=== PATIENT | male | born 1950 | race Caucasian/White ===

== ENCOUNTER 2018-08-31 18:48 | Inpatient (IN) | payer OTHER, MEDICARE, BC ==
[2018-08-31] MEDS ORDERED: Sodium Chloride 0.9% 10 ML Syringe FLUSH PRN (19:13)
[2018-08-31] MEDS ORDERED: Sodium Chloride 0.9% 1,000 ML IV ONE (19:13)
[2018-08-31] MEDS ORDERED: Sodium Chloride 0.9% 2.5 ML Syringe FLUSH PRN (19:13)
[2018-08-31] MEDS ORDERED: Pantoprazole 40 MG Vial IVPUSH ONE (19:13)
--- NOTE | 2018-08-31 19:19 | EDM.PDOC ---
ED HPI GENERAL MEDICAL PROBLEM - General Chief Complaint: Cardiovascular Problem Stated Complaint: PT FAINTED Time Seen by Provider: 08/31/18 19:04 - History of Present Illness INITIAL COMMENTS - FREE TEXT/NARRATIVE: HISTORY AND PHYSICAL: History of present illness: The patient is a 67-year-old male with a history of coronary artery disease with stents and presents with no chest pain but with having 2 syncopal events today and black tarry stools. According to the patient he has never had any GI history such as peptic ulcer disease and he doesn't have heartburn or acid reflux. He said he had a normal day yesterday and today all day he didn't have much of an appetite so he didn't eat very much. He was sitting on the toilet having a black stool which he describes as a "black mass" and he had a syncopal event falling on the floor. A similar event happened a second time and he did strike the left forehead area. The sigmoid that was very brief in duration and was quickly there. Throughout these events he did not have any chest pain or shortness of breath no nausea no abdominal pain no vomiting and currently in the ED he denies any complaints of atraumatic pain such as extremity pain head neck or back pain chest wall pain or facial pain. The patient is on Plavix due to his cardiac history. Currently in the ED the patient does not feel lightheaded or dizzy and has no systemic complaints. He has had no recent fever chills or upper respiratory infections. He has had a screening colonoscopy but has never had an endoscopy. Review of systems: As per history of present illness and below otherwise all systems reviewed and negative. Past medical history: As per history of present illness and as reviewed below otherwise noncontributory. Surgical history: As per history of present illness and as reviewed below otherwise noncontributory. Social history: No reported history of drug or alcohol abuse. Family history: As per history of present illness and as reviewed below otherwise noncontributory. Physical exam: General: Well-developed well-nourished man who is nontoxic and vital signs are noted by me. Patient has an overall pale appearance HEENT: Atraumatic, normocephalic, pupils reactive, there is conjunctival pallor but no scleral icterus, mucous membranes moist, throat clear, neck supple, nontender, trachea midline. There are no midline step-offs in his defects of the cervical spine and at the left eyebrow there is a small superficial abrasion without bony tenderness defects or deformities. There is no scalp tenderness defects deformities or tenderness and no facial bone defects deformities. Lungs: Clear to auscultation, breath sounds equal bilaterally, chest nontender. Heart: S1S2, regular rate and rhythm no overt sinus Abdomen: Soft, nondistended, nontender. Bowel sounds are slightly hypoactive and there is some tympany on percussion of the abdomen. There is absolutely no tenderness to palpation rebound or guarding. Negative for masses or hepatosplenomegaly. Negative for costovertebral tenderness. Pelvis: Stable nontender. Genitourinary: Deferred. Rectal: There are no masses or lesions and rectal tone is normal. There is black watery stool in the vault which is Hemoccult positive Extremities: Atraumatic, negative for cords or calf pain. Neurovascular unremarkable. There is full range of motion IS without tenderness defects or deformities Neuro: Awake, alert, oriented. Cranial nerves II through XII unremarkable. Cerebellum unremarkable. Motor and sensory unremarkable throughout. Exam nonfocal. Back: There are no midline step-offs tenderness defects of the thoracic or lumbar spine no posterior rib or posterior pelvis tenderness and no visible evidence of any soft tissue injuries Diagnostics: EKG CBC CMP amylase lipase INR troponin chest x-ray CT scan of the head type and screen Therapeutics: IV O2 monitor IV fluids Protonix bolus and Protonix drip 2024: Case discussed with Dr. Pittman will do a formal consult on the patient and agrees the patient can stay here and his hemoglobin observed and transfusion as needed. He will discuss tomorrow with the patient possible endoscopy 2039: Case was discussed with Dr. May who accepts the patient for admission as an inpatient on telemetry I discussed the testing results with the patient and family at bedside and they are aware of the need for admission. Impression: Upper GI bleed with syncopal event Definitive disposition and diagnosis as appropriate pending reevaluation and review of above. - Related Data Allergies Allergy/AdvReac Type Severity Reaction Status Date / Time No Known Allergies Allergy Verified 08/31/18 18:59 Home Meds: Home Meds . [Unable to Verify Home Med List] 07/12/18 [History] Past Medical History Cardiovascular History: Reports: Hypertension, [place], Stents Genitourinary History: Reports: BPH Musculoskeletal History: Reports: Arthritis, Back Pain, Chronic Psychiatric History: Reports: PTSD Endocrine/Metabolic History: Reports: Diabetes, Type II, Hypothyroidism - Infectious Disease History Infectious Disease History: Reports: Chicken Pox, Measles, Mumps - Past Surgical History GI Surgical History: Reports: Colonoscopy Musculoskeletal Surgical History: Reports: Arthroscopic Knee, Other (See Below) Other Musculoskeletal Surgeries/Procedures:: back surgery Social & Family History - Family History Family Medical History: Noncontributory - Tobacco Use Smoking Status *Q: Current Every Day Smoker Years of Tobacco use: 50 Packs/Tins Daily: 1 - Recreational Drug Use Recreational Drug Use: Yes ED ROS GENERAL - Review of Systems Review Of Systems: ROS reveals no pertinent complaints other than HPI. ED EXAM, GENERAL - Physical Exam Exam: See Below (see dictation) Course - Vital Signs Last Recorded V/S: Last Vital Signs Temp 35.3 C 08/31/18 18:57 Pulse 93 08/31/18 18:57 Resp 18 08/31/18 18:57 BP 103/58 L 08/31/18 18:57 Pulse Ox 97 08/31/18 18:57 - Orders/Labs/Meds Orders: Active Orders 24 hr Category Date Time Status Patient Status [ADT] Stat ADT 08/31/18 20:54 Ordered Blood Glucose Check, Bedside [RC] ONETIME Care 08/31/18 19:12 Active Cardiac Monitoring [RC] . DIRECTED Care 08/31/18 19:11 Active EKG Documentation Completion [RC] STAT Care 08/31/18 19:11 Active Notify Provider Consults [RC] ASDIRECTED Care 08/31/18 20:38 Active Oxygen Therapy, ED [RC] ASDIRECTED Care 08/31/18 19:11 Active Pulse Oximetry [RC] ASDIRECTED Care 08/31/18 19:11 Active Consult to Physician [CONS] Stat Cons 08/31/18 20:37 Active Chest 1V Frontal [CR] Stat Exams 08/31/18 19:13 Ordered Head wo Cont [CT] Stat Exams 08/31/18 19:13 Ordered TYPE AND SCREEN [BBK] Stat Lab 08/31/18 19:42 Received Pantoprazole [ProTONIX IV] 80 mg Med 08/31/18 19:15 Active Sodium Chloride 0.9% [Normal Saline] 100 ml IV .Continuous Sodium Chloride 0.9% [Saline Flush] Med 08/31/18 19:13 Active 10 ml FLUSH ASDIRECTED PRN Sodium Chloride 0.9% [Saline Flush] Med 08/31/18 19:13 Active 2.5 ml FLUSH ASDIRECTED PRN Saline Lock Insert [OM.PC] Stat Oth 08/31/18 19:11 Ordered Medication Orders Pantoprazole Sodium 80 mg/ (Sodium Chloride) 100 mls @ 10 mls/hr IV .Continuous MACK Last Admin: 08/31/18 20:00 Dose: 10 mls/hr Sodium Chloride (Saline Flush) 10 ml FLUSH ASDIRECTED PRN PRN Reason: Keep Vein Open Last Admin: 08/31/18 19:26 Dose: 10 ml Sodium Chloride (Saline Flush) 2.5 ml FLUSH ASDIRECTED PRN PRN Reason: Keep Vein Open Last Admin: 08/31/18 19:26 Dose: 2.5 ml Labs: Laboratory Tests 08/31/18 08/31/18 08/31/18 Range/Units 19:03 19:03 19:03 WBC 12.96 H (4.0-11.0) K/uL RBC 3.34 L (4.50-5.90) M/uL Hgb 9.1 L (13.0-17.0) g/dL Hct 29.2 L (38.0-50.0) % MCV 87.4 (80.0-98.0) fL MCH 27.2 (27.0-32.0) pg MCHC 31.2 (31.0-37.0) g/dL RDW Std Deviation 46.2 (28.0-62.0) fl RDW Coeff of [place] 14 (11.0-15.0) % Plt Count 328 (150-400) K/uL MPV 9.60 (7.40-12.00) fL Add Manual Diff YES Neutrophils % (Manual) 70 (48.0-80.0) % Lymphocytes % (Manual) 20 (16.0-40.0) % Monocytes % (Manual) 10 (0.0-15.0) % Nucleated RBC % 0.0 /100WBC Absolute Seg Neuts 9.1 H (1.4-5.7) Lymphocytes # (Manual) 2.6 H (0.6-2.4) Monocytes # (Manual) 1.3 H (0.0-0.8) Nucleated RBCs # 0 K/uL INR 1.04 Sodium 138 (136-148) mmol/L Potassium 4.7 (3.5-5.1) mmol/L Chloride 104 (98-107) mmol/L Carbon Dioxide 23.3 (21.0-32.0) mmol/L BUN 42 H (7.0-18.0) mg/dL Creatinine 1.3 (0.8-1.3) mg/dL Est Cr Clr Drug Dosing 55.90 mL/min Estimated GFR (MDRD) 55.2 ml/min Glucose 160 H (74-106) mg/dL Calcium 9.3 (8.5-10.1) mg/dL Total Bilirubin 0.3 (0.2-1.0) mg/dL AST 8 L (15-37) IU/L ALT 17 (14-63) IU/L Alkaline Phosphatase 56 (46-116) U/L Troponin I < 0.050 (0.000-0.056) ng/mL Total Protein 7.1 (6.4-8.2) g/dL Albumin 3.0 L (3.4-5.0) g/dL Globulin 4.1 H (2.6-4.0) g/dL Albumin/Globulin Ratio 0.7 L (0.9-1.6) Amylase 40 (25-115) U/L Lipase 149 (73-393) U/L Meds: Medications Generic Name Dose Route Start Last Admin Trade Name Freq PRN Reason Stop Dose Admin Pantoprazole Sodium 80 mg/ 100 mls @ 10 mls/hr 08/31/18 19:15 08/31/18 20:00 Sodium Chloride IV 10 mls/hr .Continuous MACK Administration Sodium Chloride 10 ml 08/31/18 19:13 08/31/18 19:26 Saline Flush FLUSH 10 ml ASDIRECTED PRN Administration Keep Vein Open Sodium Chloride 2.5 ml 08/31/18 19:13 08/31/18 19:26 Saline Flush FLUSH 2.5 ml ASDIRECTED PRN Administration Keep Vein Open Discontinued Medications Generic Name Dose Route Start Last Admin Trade Name Freq PRN Reason Stop Dose Admin Sodium Chloride 1,000 mls @ 999 mls/hr 08/31/18 19:13 08/31/18 19:26 Normal Saline IV 08/31/18 20:13 999 mls/hr STAT ONE Administration Pantoprazole Sodium 80 mg 08/31/18 19:13 08/31/18 19:26 Protonix Iv IVPUSH 08/31/18 19:14 80 mg .BOLUS ONE Administration Pantoprazole Sodium Confirm 08/31/18 19:35 08/31/18 20:00 Protonix Iv Administered 08/31/18 19:36 Not Given Dose 80 mg .ROUTE .STK-MED ONE Departure - Departure Time of Disposition: 20:56 Disposition: Admitted As Inpatient 67 Condition: Good Clinical Impression: Upper GI bleed Syncopal episodes Qualifiers: Syncope type: unspecified Qualified Code(s): R55 - Syncope and collapse Referrals: PCP,None [Primary Care Provider] - Forms: ED Department Discharge - My Orders Last 24 Hours: My Active Orders 08/31/18 19:11 Cardiac Monitoring [RC] . DIRECTED EKG Documentation Completion [RC] STAT Oxygen Therapy, ED [RC] ASDIRECTED Pulse Oximetry [RC] ASDIRECTED Saline Lock Insert [OM.PC] Stat 08/31/18 19:12 Blood Glucose Check, Bedside [RC] ONETIME 08/31/18 19:13 Chest 1V Frontal [CR] Stat Head wo Cont [CT] Stat Sodium Chloride 0.9% [Saline Flush] 10 ml FLUSH ASDIRECTED PRN Sodium Chloride 0.9% [Saline Flush] 2.5 ml FLUSH ASDIRECTED PRN 08/31/18 19:15 Pantoprazole [ProTONIX IV] 80 mg Sodium Chloride 0.9% [Normal Saline] 100 ml IV .Continuous 08/31/18 19:42 TYPE AND SCREEN [BBK] Stat 08/31/18 20:37 Consult to Physician [CONS] Stat 08/31/18 20:38 Notify Provider Consults [RC] ASDIRECTED 08/31/18 20:54 Patient Status [ADT] Stat - Assessment/Plan Last 24 Hours: My Active Orders 08/31/18 19:11 Cardiac Monitoring [RC] . DIRECTED EKG Documentation Completion [RC] STAT Oxygen Therapy, ED [RC] ASDIRECTED Pulse Oximetry [RC] ASDIRECTED Saline Lock Insert [OM.PC] Stat 08/31/18 19:12 Blood Glucose Check, Bedside [RC] ONETIME 08/31/18 19:13 Chest 1V Frontal [CR] Stat Head wo Cont [CT] Stat Sodium Chloride 0.9% [Saline Flush] 10 ml FLUSH ASDIRECTED PRN Sodium Chloride 0.9% [Saline Flush] 2.5 ml FLUSH ASDIRECTED PRN 08/31/18 19:15 Pantoprazole [ProTONIX IV] 80 mg Sodium Chloride 0.9% [Normal Saline] 100 ml IV .Continuous 08/31/18 19:42 TYPE AND SCREEN [BBK] Stat 08/31/18 20:37 Consult to Physician [CONS] Stat 08/31/18 20:38 Notify Provider Consults [RC] ASDIRECTED 08/31/18 20:54 Patient Status [ADT] Stat
[2018-08-31 19:33] LABS: CHLORIDE,CL 104 mmol/L (98-107); SODIUM,NA 138 mmol/L (136-148)
[2018-08-31] MEDS ORDERED: Pantoprazole 40 MG Vial ONE (19:35)
[2018-08-31] MEDS: Pantoprazole 80 MG in Sodium Chloride 0.9% 100 ML IV SCH (20:00)
[2018-08-31] MEDS ORDERED: Sodium Chloride 0.9% 1,000 ML IV SCH (21:45)
[2018-08-31] MEDS ORDERED: Ondansetron 4 MG/2 ML SDV IVPUSH PRN (22:18)
--- NOTE | 2018-08-31 22:26 | PCM.HP ---
H&P History of Present Illness - General Date of Service: 08/31/18 Admit Problem/Dx: Admission Diagnosis/Problem Admission Diagnosis/Problem Gastrointestinal hemorrhage - History of Present Illness Initial Comments - Free Text/Narative: 67 yo male with pmh of CHF, CAD with last stent place in April who presented with two syncopal events. He passed out while passing dark tarry stool. Patient denies any shortness of breath, chest pain, or abdominal pain. He denies any nausea or vomiting. He denies any abnormal bruising. He takes plavix and aspirin. - Related Data Allergies/Adverse Reactions: Allergies Allergy/AdvReac Type Severity Reaction Status Date / Time No Known Allergies Allergy Verified 08/31/18 23:20 Home Medications: Home Meds Acetaminophen/Diphenhydramine [Acetaminophen Pm Caplet] 3 each PO BEDTIME [History] Aspirin [Adult Low Dose Aspirin EC] 81 mg PO DAILY 09/01/18 [History] Carvedilol 12.5 mg PO BIDMEALS 09/01/18 [History] Clopidogrel Bisulfate [Clopidogrel] 75 mg PO DAILY 09/01/18 [History] Ergocalciferol (Vitamin D2) [Vitamin D2] 2,000 unit PO DAILY 09/01/18 [History] Finasteride 5 mg PO DAILY 09/01/18 [History] Fluticasone Propionate [Flonase] 1 spray NASBOTH DAILY PRN 09/01/18 [History] Furosemide 80 mg PO DAILY 09/01/18 [History] Levothyroxine Sodium [Levo-T] 112 mcg PO DAILY 09/01/18 [History] Loratadine 10 mg PO DAILY 09/01/18 [History] Morphine Sulfate 15 mg PO TID 09/01/18 [History] Nitroglycerin [Nitrostat] 0.4 mg SL ASDIRECTED PRN 09/01/18 [History] Omeprazole 20 mg PO DAILY 09/01/18 [History] Spironolactone [Aldactone] 12.5 mg PO DAILY 09/01/18 [History] Sucralfate 1 gm PO BID 09/01/18 [History] Tamsulosin HCl 0.4 mg PO BEDTIME 09/01/18 [History] Zolpidem Tartrate 10 mg PO BEDTIME 09/01/18 [History] atorvaSTATin Calcium [Atorvastatin Calcium] 40 mg PO BEDTIME 09/01/18 [History] metFORMIN HCl [Metformin HCl] 500 mg PO BIDMEALS 09/01/18 [History] Past Medical History Cardiovascular History: Reports: Hypertension, [place], Stents Genitourinary History: Reports: BPH Musculoskeletal History: Reports: Arthritis, Back Pain, Chronic Psychiatric History: Reports: PTSD Endocrine/Metabolic History: Reports: Diabetes, Type II, Hypothyroidism - Infectious Disease History Infectious Disease History: Reports: Chicken Pox, Measles, Mumps - Past Surgical History GI Surgical History: Reports: Colonoscopy Musculoskeletal Surgical History: Reports: Arthroscopic Knee, Other (See Below) Other Musculoskeletal Surgeries/Procedures:: back surgery Social & Family History - Family History Family Medical History: Noncontributory - Tobacco Use Smoking Status *Q: Current Every Day Smoker Years of Tobacco use: 50 Packs/Tins Daily: 1 - Recreational Drug Use Recreational Drug Use: Yes H&P Review of Systems - Review of Systems: Review Of Systems: ROS reveals no pertinent complaints other than HPI. Exam - Exam Exam: See Below - Vital Signs Vital Signs: Last Vital Signs Temp 35.3 C 08/31/18 18:57 Pulse 73 08/31/18 20:59 Resp 18 08/31/18 18:57 BP 112/63 08/31/18 20:59 Pulse Ox 96 08/31/18 20:59 Weight: 86.183 kg - Exam General: Alert, Oriented HEENT: Mucosa Moist & [place] Lungs: Clear to Auscultation, Normal Respiratory Effort Cardiovascular: Regular Rate, Regular Rhythm GI/Abdominal Exam: Soft, Non-Tender Extremities: Non-Tender, No Pedal Edema Skin: Warm, Dry, Intact - Patient Data Lab Results Last 24 hrs: Laboratory Results - last 24 hr 08/31/18 08/31/18 08/31/18 Range/Units 19:03 19:03 19:03 WBC 12.96 H (4.0-11.0) K/uL RBC 3.34 L (4.50-5.90) M/uL Hgb 9.1 L (13.0-17.0) g/dL Hct 29.2 L (38.0-50.0) % MCV 87.4 (80.0-98.0) fL MCH 27.2 (27.0-32.0) pg MCHC 31.2 (31.0-37.0) g/dL RDW Std Deviation 46.2 (28.0-62.0) fl RDW Coeff of [place] 14 (11.0-15.0) % Plt Count 328 (150-400) K/uL MPV 9.60 (7.40-12.00) fL Add Manual Diff YES Neutrophils % (Manual) 70 (48.0-80.0) % Lymphocytes % (Manual) 20 (16.0-40.0) % Monocytes % (Manual) 10 (0.0-15.0) % Nucleated RBC % 0.0 /100WBC Absolute Seg Neuts 9.1 H (1.4-5.7) Lymphocytes # (Manual) 2.6 H (0.6-2.4) Monocytes # (Manual) 1.3 H (0.0-0.8) Nucleated RBCs # 0 K/uL INR 1.04 Sodium 138 (136-148) mmol/L Potassium 4.7 (3.5-5.1) mmol/L Chloride 104 (98-107) mmol/L Carbon Dioxide 23.3 (21.0-32.0) mmol/L BUN 42 H (7.0-18.0) mg/dL Creatinine 1.3 (0.8-1.3) mg/dL Est Cr Clr Drug Dosing 55.90 mL/min Estimated GFR (MDRD) 55.2 ml/min Glucose 160 H (74-106) mg/dL Calcium 9.3 (8.5-10.1) mg/dL Total Bilirubin 0.3 (0.2-1.0) mg/dL AST 8 L (15-37) IU/L ALT 17 (14-63) IU/L Alkaline Phosphatase 56 (46-116) U/L Troponin I < 0.050 (0.000-0.056) ng/mL Total Protein 7.1 (6.4-8.2) g/dL Albumin 3.0 L (3.4-5.0) g/dL Globulin 4.1 H (2.6-4.0) g/dL Albumin/Globulin Ratio 0.7 L (0.9-1.6) Amylase 40 (25-115) U/L Lipase 149 (73-393) U/L Blood Type Antibody Screen 08/31/18 Range/Units 19:42 WBC (4.0-11.0) K/uL RBC (4.50-5.90) M/uL Hgb (13.0-17.0) g/dL Hct (38.0-50.0) % MCV (80.0-98.0) fL MCH (27.0-32.0) pg MCHC (31.0-37.0) g/dL RDW Std Deviation (28.0-62.0) fl RDW Coeff of [place] (11.0-15.0) % Plt Count (150-400) K/uL MPV (7.40-12.00) fL Add Manual Diff Neutrophils % (Manual) (48.0-80.0) % Lymphocytes % (Manual) (16.0-40.0) % Monocytes % (Manual) (0.0-15.0) % Nucleated RBC % /100WBC Absolute Seg Neuts (1.4-5.7) Lymphocytes # (Manual) (0.6-2.4) Monocytes # (Manual) (0.0-0.8) Nucleated RBCs # K/uL INR Sodium (136-148) mmol/L Potassium (3.5-5.1) mmol/L Chloride (98-107) mmol/L Carbon Dioxide (21.0-32.0) mmol/L BUN (7.0-18.0) mg/dL Creatinine (0.8-1.3) mg/dL Est Cr Clr Drug Dosing mL/min Estimated GFR (MDRD) ml/min Glucose (74-106) mg/dL Calcium (8.5-10.1) mg/dL Total Bilirubin (0.2-1.0) mg/dL AST (15-37) IU/L ALT (14-63) IU/L Alkaline Phosphatase (46-116) U/L Troponin I (0.000-0.056) ng/mL Total Protein (6.4-8.2) g/dL Albumin (3.4-5.0) g/dL Globulin (2.6-4.0) g/dL Albumin/Globulin Ratio (0.9-1.6) Amylase (25-115) U/L Lipase (73-393) U/L Blood Type A POSITIVE Antibody Screen NEGATIVE Result Diagrams: 09/01/18 08:25 08/31/18 19:03 Problem List Initiated/Reviewed/Updated: Yes Orders Last 24hrs: Active Orders 24 hr Category Date Time Status Patient Status [ADT] Stat ADT 08/31/18 20:54 Active Blood Glucose Check, Bedside [RC] ONETIME Care 08/31/18 19:12 Active Cardiac Monitoring [RC] . DIRECTED Care 08/31/18 19:11 Active EKG Documentation Completion [RC] STAT Care 08/31/18 19:11 Active Notify Provider Consults [RC] ASDIRECTED Care 08/31/18 20:38 Active Oxygen Therapy [RC] PRN Care 08/31/18 22:18 Ordered Oxygen Therapy, ED [RC] ASDIRECTED Care 08/31/18 19:11 Active Pulse Oximetry [RC] ASDIRECTED Care 08/31/18 19:11 Active VTE/DVT Education [RC] PER UNIT ROUTINE Care 08/31/18 22:18 Ordered Vital Signs [RC] Q4H Care 08/31/18 22:18 Ordered Consult to Physician [CONS] Stat Cons 08/31/18 20:37 Active Nothing per Oral Now Diet [DIET] Diet 08/31/18 Breakfast Ordered Chest 1V Frontal [CR] Stat Exams 08/31/18 19:13 Ordered Head wo Cont [CT] Stat Exams 08/31/18 19:13 Ordered BASIC METABOLIC PANEL,BMP [CHEM] AM Lab 09/01/18 05:11 Ordered CBC WITH AUTO DIFF [HEME] Q6H Lab 08/31/18 23:00 Ordered CBC WITH AUTO DIFF [HEME] Q6H Lab 09/01/18 05:00 Ordered Nicotine [Habitrol] Med 09/01/18 09:00 Ordered 21 mg TRDERM DAILY Ondansetron [Zofran] Med 08/31/18 22:18 Ordered 4 mg IVPUSH Q4H PRN Pantoprazole [ProTONIX IV] 80 mg Med 08/31/18 19:15 Active Sodium Chloride 0.9% [Normal Saline] 100 ml IV .Continuous Sodium Chloride 0.9% [Normal Saline] 1,000 ml Med 08/31/18 21:45 Active IV ASDIRECTED Sodium Chloride 0.9% [Saline Flush] Med 08/31/18 19:13 Active 10 ml FLUSH ASDIRECTED PRN Sodium Chloride 0.9% [Saline Flush] Med 08/31/18 19:13 Active 2.5 ml FLUSH ASDIRECTED PRN Saline Lock Insert [OM.PC] Stat Oth 08/31/18 19:11 Ordered Sequential Compression Device [OM.PC] Per Unit Routine Oth 08/31/18 22:19 Ordered Resuscitation Status Routine Resus Stat 08/31/18 22:18 Ordered Medication Orders Pantoprazole Sodium 80 mg/ (Sodium Chloride) 100 mls @ 10 mls/hr IV .Continuous MACK Last Admin: 08/31/18 20:00 Dose: 10 mls/hr Sodium Chloride (Normal Saline) 1,000 mls @ 125 mls/hr IV ASDIRECTED MACK Sodium Chloride (Saline Flush) 10 ml FLUSH ASDIRECTED PRN PRN Reason: Keep Vein Open Last Admin: 08/31/18 19:26 Dose: 10 ml Sodium Chloride (Saline Flush) 2.5 ml FLUSH ASDIRECTED PRN PRN Reason: Keep Vein Open Last Admin: 08/31/18 19:26 Dose: 2.5 ml Assessment/Plan Comment:: 67 yo male with pmh of CAD who is being admitted for GI bleed. We will treat with protonix drip, and trend Hgb. Due to concern of active GI bleed will hold plavix and aspirin. Dr. Pittman was consulted in the ED.
[2018-09-01] MEDS: Pantoprazole 80 MG in Sodium Chloride 0.9% 100 ML IV SCH ×2 (07:05→17:29)
--- NOTE | 2018-09-01 08:49 | PCM.PN ---
- General Info Date of Service: 09/01/18 - Review of Systems Systems Review Comment:: no abdominal pain, no bloody bowel movement. - Patient Data Vitals - Most Recent: Last Vital Signs Temp 36.7 C 09/01/18 08:20 Pulse 89 09/01/18 08:20 Resp 16 09/01/18 08:20 BP 117/59 L 09/01/18 08:20 Pulse Ox 99 09/01/18 08:20 Weight - Most Recent: 86.183 kg I&O - Last 24 Hours: Intake & Output 08/31/18 09/01/18 09/01/18 22:59 06:59 14:59 Intake Total 766 350 Balance 766 350 Lab Results Last 24 Hours: Laboratory Results - last 24 hr 08/31/18 08/31/18 08/31/18 Range/Units 19:03 19:03 19:03 WBC 12.96 H (4.0-11.0) K/uL RBC 3.34 L (4.50-5.90) M/uL Hgb 9.1 L (13.0-17.0) g/dL Hct 29.2 L (38.0-50.0) % MCV 87.4 (80.0-98.0) fL MCH 27.2 (27.0-32.0) pg MCHC 31.2 (31.0-37.0) g/dL RDW Std Deviation 46.2 (28.0-62.0) fl RDW Coeff of [place] 14 (11.0-15.0) % Plt Count 328 (150-400) K/uL MPV 9.60 (7.40-12.00) fL Add Manual Diff YES Neutrophils % (Manual) 70 (48.0-80.0) % Lymphocytes % (Manual) 20 (16.0-40.0) % Monocytes % (Manual) 10 (0.0-15.0) % Nucleated RBC % 0.0 /100WBC Absolute Seg Neuts 9.1 H (1.4-5.7) Lymphocytes # (Manual) 2.6 H (0.6-2.4) Monocytes # (Manual) 1.3 H (0.0-0.8) Nucleated RBCs # 0 K/uL INR 1.04 Sodium 138 (136-148) mmol/L Potassium 4.7 (3.5-5.1) mmol/L Chloride 104 (98-107) mmol/L Carbon Dioxide 23.3 (21.0-32.0) mmol/L BUN 42 H (7.0-18.0) mg/dL Creatinine 1.3 (0.8-1.3) mg/dL Est Cr Clr Drug Dosing 55.90 mL/min Estimated GFR (MDRD) 55.2 ml/min Glucose 160 H (74-106) mg/dL POC Glucose (60-110) mg/dL Calcium 9.3 (8.5-10.1) mg/dL Total Bilirubin 0.3 (0.2-1.0) mg/dL AST 8 L (15-37) IU/L ALT 17 (14-63) IU/L Alkaline Phosphatase 56 (46-116) U/L Troponin I < 0.050 (0.000-0.056) ng/mL Total Protein 7.1 (6.4-8.2) g/dL Albumin 3.0 L (3.4-5.0) g/dL Globulin 4.1 H (2.6-4.0) g/dL Albumin/Globulin Ratio 0.7 L (0.9-1.6) Amylase 40 (25-115) U/L Lipase 149 (73-393) U/L Blood Type Antibody Screen Crossmatch 08/31/18 08/31/18 08/31/18 Range/Units 19:18 19:42 23:11 WBC 7.96 (4.0-11.0) K/uL RBC 3.03 L (4.50-5.90) M/uL Hgb 8.2 L (13.0-17.0) g/dL Hct 26.3 L (38.0-50.0) % MCV 86.8 (80.0-98.0) fL MCH 27.1 (27.0-32.0) pg MCHC 31.2 (31.0-37.0) g/dL RDW Std Deviation 45.5 (28.0-62.0) fl RDW Coeff of [place] 14 (11.0-15.0) % Plt Count 238 (150-400) K/uL MPV 9.00 (7.40-12.00) fL Add Manual Diff YES Neutrophils % (Manual) 55 (48.0-80.0) % Lymphocytes % (Manual) 28 (16.0-40.0) % Monocytes % (Manual) 17 H (0.0-15.0) % Nucleated RBC % 0.3 /100WBC Absolute Seg Neuts 4.4 (1.4-5.7) Lymphocytes # (Manual) 2.2 (0.6-2.4) Monocytes # (Manual) 1.4 H (0.0-0.8) Nucleated RBCs # 0 K/uL INR Sodium (136-148) mmol/L Potassium (3.5-5.1) mmol/L Chloride (98-107) mmol/L Carbon Dioxide (21.0-32.0) mmol/L BUN (7.0-18.0) mg/dL Creatinine (0.8-1.3) mg/dL Est Cr Clr Drug Dosing mL/min Estimated GFR (MDRD) ml/min Glucose (74-106) mg/dL POC Glucose 142 H (60-110) mg/dL Calcium (8.5-10.1) mg/dL Total Bilirubin (0.2-1.0) mg/dL AST (15-37) IU/L ALT (14-63) IU/L Alkaline Phosphatase (46-116) U/L Troponin I (0.000-0.056) ng/mL Total Protein (6.4-8.2) g/dL Albumin (3.4-5.0) g/dL Globulin (2.6-4.0) g/dL Albumin/Globulin Ratio (0.9-1.6) Amylase (25-115) U/L Lipase (73-393) U/L Blood Type A POSITIVE Antibody Screen NEGATIVE Crossmatch See Detail 09/01/18 09/01/18 Range/Units 08:16 08:25 WBC 8.78 (4.0-11.0) K/uL RBC 3.70 L (4.50-5.90) M/uL Hgb 10.1 L (13.0-17.0) g/dL Hct 31.3 L (38.0-50.0) % MCV 84.6 (80.0-98.0) fL MCH 27.3 (27.0-32.0) pg MCHC 32.3 (31.0-37.0) g/dL RDW Std Deviation 45.8 (28.0-62.0) fl RDW Coeff of [place] 15 (11.0-15.0) % Plt Count 219 (150-400) K/uL MPV 9.40 (7.40-12.00) fL Add Manual Diff YES Neutrophils % (Manual) (48.0-80.0) % Lymphocytes % (Manual) (16.0-40.0) % Monocytes % (Manual) (0.0-15.0) % Nucleated RBC % 0.0 /100WBC Absolute Seg Neuts (1.4-5.7) Lymphocytes # (Manual) (0.6-2.4) Monocytes # (Manual) (0.0-0.8) Nucleated RBCs # 0 K/uL INR Sodium (136-148) mmol/L Potassium (3.5-5.1) mmol/L Chloride (98-107) mmol/L Carbon Dioxide (21.0-32.0) mmol/L BUN (7.0-18.0) mg/dL Creatinine (0.8-1.3) mg/dL Est Cr Clr Drug Dosing mL/min Estimated GFR (MDRD) ml/min Glucose (74-106) mg/dL POC Glucose 101 (60-110) mg/dL Calcium (8.5-10.1) mg/dL Total Bilirubin (0.2-1.0) mg/dL AST (15-37) IU/L ALT (14-63) IU/L Alkaline Phosphatase (46-116) U/L Troponin I (0.000-0.056) ng/mL Total Protein (6.4-8.2) g/dL Albumin (3.4-5.0) g/dL Globulin (2.6-4.0) g/dL Albumin/Globulin Ratio (0.9-1.6) Amylase (25-115) U/L Lipase (73-393) U/L Blood Type Antibody Screen Crossmatch Med Orders - Current: Current Medications Atorvastatin Calcium (Lipitor) 40 mg PO BEDTIME MACK Clopidogrel Bisulfate (Plavix) 75 mg PO DAILY MACK Pantoprazole Sodium 80 mg/ (Sodium Chloride) 100 mls @ 10 mls/hr IV .Continuous MACK Last Admin: 09/01/18 07:05 Dose: 10 mls/hr Insulin Aspart (Novolog) 0 unit SUBCUT TIDAC MACK; Protocol Levothyroxine Sodium (Levothyroxine) 112 mcg PO DAILY [facility] Morphine Sulfate (Morphine) 15 mg PO TID MACK Nicotine (Habitrol) 21 mg TRDERM DAILY [facility] Non-Formulary Medication (Metformin Hcl [Metformin Hcl]) 500 mg PO BIDMEALS [facility] Non-Formulary Medication (Zolpidem Tartrate) 10 mg PO BEDTIME MACK Ondansetron HCl (Zofran) 4 mg IVPUSH Q4H PRN PRN Reason: Nausea Sodium Chloride (Saline Flush) 10 ml FLUSH ASDIRECTED PRN PRN Reason: Keep Vein Open Last Admin: 08/31/18 19:26 Dose: 10 ml Sodium Chloride (Saline Flush) 2.5 ml FLUSH ASDIRECTED PRN PRN Reason: Keep Vein Open Last Admin: 08/31/18 19:26 Dose: 2.5 ml Discontinued Medications Sodium Chloride (Normal Saline) 1,000 mls @ 999 mls/hr IV STAT ONE Stop: 08/31/18 20:13 Last Admin: 08/31/18 19:26 Dose: 999 mls/hr Sodium Chloride (Normal Saline) 1,000 mls @ 125 mls/hr IV ASDIRECTED MACK Last Admin: 08/31/18 22:38 Dose: 125 mls/hr Pantoprazole Sodium (Protonix Iv) 80 mg IVPUSH .BOLUS ONE Stop: 08/31/18 19:14 Last Admin: 08/31/18 19:26 Dose: 80 mg Pantoprazole Sodium (Protonix Iv) Confirm Administered Dose 80 mg .ROUTE .STK -MED ONE Stop: 08/31/18 19:36 Last Admin: 08/31/18 20:00 Dose: Not Given - Exam General: Alert, Oriented Lungs: Clear to Auscultation, Normal Respiratory Effort Cardiovascular: Regular Rate, Regular Rhythm GI/Abdominal Exam: Soft, Non-Tender Extremities: Non-Tender, No Pedal Edema Skin: Warm, Dry, Intact - Problem List Review Problem List Initiated/Reviewed/Updated: Yes - My Orders Last 24 Hours: My Active Orders 08/31/18 22:18 Oxygen Therapy [RC] PRN VTE/DVT Education [RC] PER UNIT ROUTINE Vital Signs [RC] Q4H Ondansetron [Zofran] 4 mg IVPUSH Q4H PRN Resuscitation Status Routine 08/31/18 22:19 Sequential Compression Device [OM.PC] Per Unit Routine 09/01/18 08:08 Blood Glucose Check, Bedside [RC] Q6H 09/01/18 08:25 BASIC METABOLIC PANEL,BMP [CHEM] AM CBC WITH AUTO DIFF [HEME] Q6H 09/01/18 08:43 Accu Check [Blood Glucose Check, Bedside] [RC] TIDAC 09/01/18 09:00 Clopidogrel [Plavix] 75 mg PO DAILY Levothyroxine 112 mcg PO DAILY Nicotine [Habitrol] 21 mg TRDERM DAILY 09/01/18 11:30 Insulin Aspart [NovoLOG] See Protocol SUBCUT TIDAC 09/01/18 14:00 Morphine 15 mg PO TID 09/01/18 17:00 metFORMIN HCl [Metformin HCl] 500 mg PO BIDMEALS 09/01/18 21:00 Zolpidem Tartrate 10 mg PO BEDTIME atorvaSTATin [Lipitor] 40 mg PO BEDTIME 09/01/18 Lunch Clear Liquid Diet [DIET] - Plan Plan:: 67 yo male with pmh of CAD admitted for GI bleed. We will treat with protonix drip, and trend Hgb. Hgb up to 10.1 from 8.2 after two units of pRBC.
[2018-09-01] MEDS: Levothyroxine 112 MCG Tab PO SCH (09:27)
[2018-09-01] MEDS: Nicotine 21 MG/24 Hr Patch TRDERM SCH (09:28)
[2018-09-01] MEDS: Clopidogrel 75 MG Tab PO SCH (09:28)
--- NOTE | 2018-09-01 11:16 | PCM.CONS ---
H&P History of Present Illness - General Date of Service: 09/01/18 Admit Problem/Dx: Admission Diagnosis/Problem Admission Diagnosis/Problem Gastrointestinal hemorrhage Source of Information: Patient, Family History Limitations: Reports: No Limitations - History of Present Illness Symptom Onset Date: 08/31/18 Symptom Onset Time: 14:00 Location: Reports: Abdomen Quality: Reports: Other (Black tarry stools) Severity: Moderate Improves with: Reports: None Worsens with: Reports: None Associated Symptoms: Reports: Syncope, Weakness - Related Data Allergies/Adverse Reactions: Allergies Allergy/AdvReac Type Severity Reaction Status Date / Time No Known Allergies Allergy Verified 08/31/18 23:20 Home Medications: Home Meds Acetaminophen/Diphenhydramine [Acetaminophen Pm Caplet] 3 each PO BEDTIME [History] Aspirin [Adult Low Dose Aspirin EC] 81 mg PO DAILY 09/01/18 [History] Carvedilol 12.5 mg PO BIDMEALS 09/01/18 [History] Clopidogrel Bisulfate [Clopidogrel] 75 mg PO DAILY 09/01/18 [History] Ergocalciferol (Vitamin D2) [Vitamin D2] 2,000 unit PO DAILY 09/01/18 [History] Finasteride 5 mg PO DAILY 09/01/18 [History] Fluticasone Propionate [Flonase] 1 spray NASBOTH DAILY PRN 09/01/18 [History] Furosemide 80 mg PO DAILY 09/01/18 [History] Levothyroxine Sodium [Levo-T] 112 mcg PO DAILY 09/01/18 [History] Loratadine 10 mg PO DAILY 09/01/18 [History] Morphine Sulfate 15 mg PO TID 09/01/18 [History] Nitroglycerin [Nitrostat] 0.4 mg SL ASDIRECTED PRN 09/01/18 [History] Omeprazole 20 mg PO DAILY 09/01/18 [History] Spironolactone [Aldactone] 12.5 mg PO DAILY 09/01/18 [History] Sucralfate 1 gm PO BID 09/01/18 [History] Tamsulosin HCl 0.4 mg PO BEDTIME 09/01/18 [History] Zolpidem Tartrate 10 mg PO BEDTIME 09/01/18 [History] atorvaSTATin Calcium [Atorvastatin Calcium] 40 mg PO BEDTIME 09/01/18 [History] metFORMIN HCl [Metformin HCl] 500 mg PO BIDMEALS 09/01/18 [History] Past Medical History HEENT History: Reports: Hard of Hearing Cardiovascular History: Reports: Hypertension, [place], Stents Other Cardiovascular History: Exertional chest pain Respiratory History: Reports: COPD, Sleep Apnea Gastrointestinal History: Reports: None Genitourinary History: Reports: BPH Other Genitourinary History: Chronic Kidney disease Musculoskeletal History: Reports: Arthritis, Back Pain, Chronic Psychiatric History: Reports: PTSD Endocrine/Metabolic History: Reports: Diabetes, Type II, Hypothyroidism - Infectious Disease History Infectious Disease History: Reports: Chicken Pox, Measles, Mumps - Past Surgical History GI Surgical History: Reports: Colonoscopy Neurological Surgical History: Reports: Spinal Fusion Musculoskeletal Surgical History: Reports: Arthroscopic Knee, Other (See Below) Other Musculoskeletal Surgeries/Procedures:: back surgery Social & Family History - Family History Family Medical History: Noncontributory - Tobacco Use Smoking Status *Q: Current Every Day Smoker Years of Tobacco use: 50 Packs/Tins Daily: 1 - Caffeine Use Caffeine Use: Reports: None - Recreational Drug Use Recreational Drug Use: Yes H&P Review of Systems - Review of Systems: Review Of Systems: See Below General: Reports: Diaphoresis. Denies: Fever, Chills, Malaise, Decreased Appetite, Weight Loss HEENT: Reports: No Symptoms Pulmonary: Denies: Shortness of Breath, Wheezing Cardiovascular: Reports: Syncope. Denies: Chest Pain Gastrointestinal: Reports: Black Stool, Melena. Denies: Abdominal Pain, Anorexia, Bloody Stool, Constipation, Diarrhea Genitourinary: Reports: No Symptoms Musculoskeletal: Reports: Back Pain (Chronic) Skin: Denies: Cyanosis, Jaundice, Mottled Psychiatric: Denies: Confusion, Depression, Mood Lability, Anxiety Neurological: Reports: No Symptoms Hematologic/Lymphatic: Reports: Anemia, Other (Is on aspirin and Plavix). Denies: Easy Bleeding, Easy Bruising Immunologic: Reports: No Symptoms Exam - Exam Exam: See Below - Vital Signs Vital Signs: Last Vital Signs Temp 98.1 F 09/01/18 08:20 Pulse 89 09/01/18 08:20 Resp 16 09/01/18 08:20 BP 117/59 L 09/01/18 08:20 Pulse Ox 99 09/01/18 08:20 Weight: 190 lb - Exam Quality Assessment: Supplemental Oxygen General: Alert, Oriented, Cooperative HEENT: Conjunctiva Clear, Pupils Equal, Pupils Reactive. No: Scleral Icterus Neck: Supple, Trachea Midline Lungs: Clear to Auscultation, Normal Respiratory Effort Cardiovascular: Regular Rate, Regular Rhythm, Normal S1, Normal S2. No: Tachycardia, Systolic Murmur, Diastolic Murmur GI/Abdominal Exam: Normal Bowel Sounds, Soft, Non-Tender, No Mass (Male) Exam: Deferred Rectal (Males) Exam: Deferred Back Exam: Normal Inspection Extremities: Normal Inspection, Normal Range of Motion, Non-Tender, No Pedal Edema, Other (Bilateral total knee arthroplasty incisions well-healed.) Skin: Warm, Dry, Intact Neuro Extensive - Mental Status: Alert, Oriented x3, Normal Mood/Affect, Normal Cognition Psychiatric: Alert, Normal Affect, Normal Mood - Patient Data Lab Results Last 24 hrs: Laboratory Results - last 24 hr 08/31/18 08/31/18 08/31/18 Range/Units 19:03 19:03 19:03 WBC 12.96 H (4.0-11.0) K/uL RBC 3.34 L (4.50-5.90) M/uL Hgb 9.1 L (13.0-17.0) g/dL Hct 29.2 L (38.0-50.0) % MCV 87.4 (80.0-98.0) fL MCH 27.2 (27.0-32.0) pg MCHC 31.2 (31.0-37.0) g/dL RDW Std Deviation 46.2 (28.0-62.0) fl RDW Coeff of [place] 14 (11.0-15.0) % Plt Count 328 (150-400) K/uL MPV 9.60 (7.40-12.00) fL Add Manual Diff YES Neutrophils % (Manual) 70 (48.0-80.0) % Lymphocytes % (Manual) 20 (16.0-40.0) % Monocytes % (Manual) 10 (0.0-15.0) % Nucleated RBC % 0.0 /100WBC Absolute Seg Neuts 9.1 H (1.4-5.7) Lymphocytes # (Manual) 2.6 H (0.6-2.4) Monocytes # (Manual) 1.3 H (0.0-0.8) Nucleated RBCs # 0 K/uL INR 1.04 Sodium 138 (136-148) mmol/L Potassium 4.7 (3.5-5.1) mmol/L Chloride 104 (98-107) mmol/L Carbon Dioxide 23.3 (21.0-32.0) mmol/L BUN 42 H (7.0-18.0) mg/dL Creatinine 1.3 (0.8-1.3) mg/dL Est Cr Clr Drug Dosing 55.90 mL/min Estimated GFR (MDRD) 55.2 ml/min Glucose 160 H (74-106) mg/dL POC Glucose (60-110) mg/dL Calcium 9.3 (8.5-10.1) mg/dL Total Bilirubin 0.3 (0.2-1.0) mg/dL AST 8 L (15-37) IU/L ALT 17 (14-63) IU/L Alkaline Phosphatase 56 (46-116) U/L Troponin I < 0.050 (0.000-0.056) ng/mL Total Protein 7.1 (6.4-8.2) g/dL Albumin 3.0 L (3.4-5.0) g/dL Globulin 4.1 H (2.6-4.0) g/dL Albumin/Globulin Ratio 0.7 L (0.9-1.6) Amylase 40 (25-115) U/L Lipase 149 (73-393) U/L Blood Type Antibody Screen Crossmatch 08/31/18 08/31/18 08/31/18 Range/Units 19:18 19:42 23:11 WBC 7.96 (4.0-11.0) K/uL RBC 3.03 L (4.50-5.90) M/uL Hgb 8.2 L (13.0-17.0) g/dL Hct 26.3 L (38.0-50.0) % MCV 86.8 (80.0-98.0) fL MCH 27.1 (27.0-32.0) pg MCHC 31.2 (31.0-37.0) g/dL RDW Std Deviation 45.5 (28.0-62.0) fl RDW Coeff of [place] 14 (11.0-15.0) % Plt Count 238 (150-400) K/uL MPV 9.00 (7.40-12.00) fL Add Manual Diff YES Neutrophils % (Manual) 55 (48.0-80.0) % Lymphocytes % (Manual) 28 (16.0-40.0) % Monocytes % (Manual) 17 H (0.0-15.0) % Nucleated RBC % 0.3 /100WBC Absolute Seg Neuts 4.4 (1.4-5.7) Lymphocytes # (Manual) 2.2 (0.6-2.4) Monocytes # (Manual) 1.4 H (0.0-0.8) Nucleated RBCs # 0 K/uL INR Sodium (136-148) mmol/L Potassium (3.5-5.1) mmol/L Chloride (98-107) mmol/L Carbon Dioxide (21.0-32.0) mmol/L BUN (7.0-18.0) mg/dL Creatinine (0.8-1.3) mg/dL Est Cr Clr Drug Dosing mL/min Estimated GFR (MDRD) ml/min Glucose (74-106) mg/dL POC Glucose 142 H (60-110) mg/dL Calcium (8.5-10.1) mg/dL Total Bilirubin (0.2-1.0) mg/dL AST (15-37) IU/L ALT (14-63) IU/L Alkaline Phosphatase (46-116) U/L Troponin I (0.000-0.056) ng/mL Total Protein (6.4-8.2) g/dL Albumin (3.4-5.0) g/dL Globulin (2.6-4.0) g/dL Albumin/Globulin Ratio (0.9-1.6) Amylase (25-115) U/L Lipase (73-393) U/L Blood Type A POSITIVE Antibody Screen NEGATIVE Crossmatch See Detail 09/01/18 09/01/18 09/01/18 Range/Units 08:16 08:25 08:25 WBC 8.78 (4.0-11.0) K/uL RBC 3.70 L (4.50-5.90) M/uL Hgb 10.1 L (13.0-17.0) g/dL Hct 31.3 L (38.0-50.0) % MCV 84.6 (80.0-98.0) fL MCH 27.3 (27.0-32.0) pg MCHC 32.3 (31.0-37.0) g/dL RDW Std Deviation 45.8 (28.0-62.0) fl RDW Coeff of [place] 15 (11.0-15.0) % Plt Count 219 (150-400) K/uL MPV 9.40 (7.40-12.00) fL Add Manual Diff YES Neutrophils % (Manual) (48.0-80.0) % Lymphocytes % (Manual) (16.0-40.0) % Monocytes % (Manual) (0.0-15.0) % Nucleated RBC % 0.0 /100WBC Absolute Seg Neuts (1.4-5.7) Lymphocytes # (Manual) (0.6-2.4) Monocytes # (Manual) (0.0-0.8) Nucleated RBCs # 0 K/uL INR Sodium 144 (136-148) mmol/L Potassium 3.7 (3.5-5.1) mmol/L Chloride 109 H (98-107) mmol/L Carbon Dioxide 24.7 (21.0-32.0) mmol/L BUN 35 H (7.0-18.0) mg/dL Creatinine 1.4 H (0.8-1.3) mg/dL Est Cr Clr Drug Dosing 51.90 mL/min Estimated GFR (MDRD) 50.7 ml/min Glucose 112 H (74-106) mg/dL POC Glucose 101 (60-110) mg/dL Calcium 8.9 (8.5-10.1) mg/dL Total Bilirubin (0.2-1.0) mg/dL AST (15-37) IU/L ALT (14-63) IU/L Alkaline Phosphatase (46-116) U/L Troponin I (0.000-0.056) ng/mL Total Protein (6.4-8.2) g/dL Albumin (3.4-5.0) g/dL Globulin (2.6-4.0) g/dL Albumin/Globulin Ratio (0.9-1.6) Amylase (25-115) U/L Lipase (73-393) U/L Blood Type Antibody Screen Crossmatch Result Diagrams: 09/01/18 08:25 09/01/18 08:25 Consult PN Assessment/Plan Procedures: Procedures AGENT NOS ASSAY W/OPTIC (07/12/18) ANTINUCLEAR ANTIBODIES (01/02/18) ASSAY NEPHELOMETRY NOT SPEC (01/02/18) ASSAY OF BLOOD/URIC ACID (01/02/18) ASSAY OF LIPASE (07/12/18) ASSAY OF MAGNESIUM (01/02/18) ASSAY OF NATRIURETIC PEPTIDE (07/12/18) ASSAY OF PARATHORMONE (01/02/18) ASSAY OF PROTEIN URINE (01/22/18) ASSAY OF TROPONIN QUANT (07/12/18) ASSAY OF URINE CREATININE (01/22/18) CARDIOVASCULAR STRESS TEST (12/04/17) CLOSTRIDIUM AG IA (07/12/18) COMPLEMENT ANTIGEN (01/02/18) COMPLETE CBC W/AUTO DIFF WBC (07/12/18) COMPREHEN METABOLIC PANEL (07/12/18) CT ABD & PELVIS W/O CONTRAST (07/12/18) ELECTROCARDIOGRAM TRACING (07/12/18) EMERGENCY DEPT VISIT (07/12/18) HIV-1 AG IA (01/02/18) HT MUSCLE IMAGE SPECT MULT (12/04/17) HYDRATE IV INFUSION ADD-ON (07/12/18) HYDRATION IV INFUSION INIT (07/12/18) METABOLIC PANEL TOTAL CA (06/05/18) RENAL FUNCTION PANEL (01/22/18) ROUTINE VENIPUNCTURE (07/12/18) STOOL CULTR AEROBIC BACT EA (07/12/18) TTE W/DOPPLER COMPLETE (12/05/17) URINALYSIS AUTO W/SCOPE (07/12/18) URINE CULTURE/COLONY COUNT (07/12/18) US EXAM ABDO BACK WALL COMP (02/06/18) US EXAM ABDOM COMPLETE (08/06/18) VITAMIN D 25 HYDROXY (01/02/18) X-RAY EXAM CHEST 1 VIEW (07/12/18) X-RAY EXAM CHEST 2 VIEWS (07/04/18) (1) History of coronary artery stent placement SNOMED Code(s): 261815114, 284992953 Code(s): Z95.5 - PRESENCE OF CORONARY ANGIOPLASTY IMPLANT AND GRAFT Priority: Medium Current Visit: Yes (2) Anemia associated with acute blood loss SNOMED Code(s): 456001055 Code(s): D62 - ACUTE POSTHEMORRHAGIC ANEMIA Priority: High Current Visit : Yes (3) Syncopal episodes SNOMED Code(s): 340588456 Code(s): R55 - SYNCOPE AND COLLAPSE Priority: High Current Visit: Yes Qualifiers: Syncope type: unspecified Qualified Code(s): R55 - Syncope and collapse (4) Upper GI bleed SNOMED Code(s): 50009778 Code(s): K92.2 - GASTROINTESTINAL HEMORRHAGE, UNSPECIFIED Priority: High Current Visit: Yes Problem List Initiated/Reviewed/Updated: Yes My Orders Last 24 Hours: My Active Orders 09/01/18 Dinner Nothing Per Oral Diet [DIET] Plan: Esophagogastroduodenoscopy with biopsy. The operative procedure, along with the risks, including, but not limited to, bleeding, perforation, and the need for surgery were discussed with the patient who voices understanding, offers no questions and wishes to proceed.
[2018-09-01] MEDS: Insulin Aspart 100 Units/ML 3 ML Pen SUBCUT SCH ×2 (11:45→17:34)
[2018-09-01] MEDS: Morphine 15 MG Tab PO SCH ×2 (14:16→21:44)
[2018-09-01] MEDS ORDERED: metFORMIN 500 MG Tab PO SCH (17:00)
[2018-09-01] MEDS ORDERED: metFORMIN 500 MG Tab.ER PO SCH (17:22)
[2018-09-01] MEDS: metFORMIN 500 MG Tab PO SCH (17:33)
[2018-09-01] MEDS ORDERED: atorvaSTATin 40 MG Tab PO SCH (21:00)
[2018-09-02] MEDS: Pantoprazole 80 MG in Sodium Chloride 0.9% 100 ML IV SCH ×2 (03:09→12:14)
--- NOTE | 2018-09-02 06:42 | PCM.PREANE ---
Preanesthetic Assessment - Procedure Proposed Procedure: EGD with biopsies - Anesthesia/Transfusion/Family Hx Anesthesia History: Prior Anesthesia Without Reaction (spinal fusion x 9, knee scope, coronary stenting 2012 after massive NE--last one stent Apr 2019. No anesthesia issues noted. colonoscopy in the past revealed polyps. Has never had EGD) Family History of Anesthesia Reaction: No Transfusion History: Prior Transfusion Without Reaction (had 2 units PRBC yesterday to bring hemoglobin up from 8.2 to 10,1) - Review of Systems General: No Symptoms (syncopal episodes at same time as passing black tarry stools) Pulmonary: No Symptoms (smoker) Cardiovascular: No Symptoms (history of anteroseptal NE, CAD, stenting, hypertension. NE with CHF 2005 (massive anterior)) Gastrointestinal: No Symptoms (GI bleed, pancreatitis with dehydration) Neurological: No Symptoms (PTSD) Other: Reports: None (kidney stones, chronic kidney disease with elevated BUN and creatinine, BPH, DJD, hypothyroid, diabetic) - Physical Assessment NPO Status Date: 09/02/18 NPO Status Time: 00:00 Pulse: 88 O2 Sat by Pulse Oximetry: 96 Respiratory Rate: 18 Blood Pressure: 110/62 Temperature: 36.1 C Vital Signs: Last Vital Signs Temp 36.9 C 09/02/18 03:00 Pulse 83 09/02/18 03:00 Resp 18 09/02/18 03:00 BP 105/57 L 09/02/18 03:00 Pulse Ox 96 09/02/18 03:00 Height: 1.75 m Weight: 86.183 kg ASA Class: 3 Mental Status: Alert & Oriented x3 Airway Class: Mallampati = 1 Dentition: Reports: Dentures Thyro-Mental Finger Breadths: 2 Mouth Opening Finger Breadths: 3 Lungs: Clear to Auscultation, Normal Respiratory Effort Cardiovascular: Regular Rate, Regular Rhythm, No Murmurs - Lab Values: Laboratory Last Values WBC 10.80 K/uL (4.0-11.0) 09/01/18 16:46 RBC 3.60 M/uL (4.50-5.90) L 09/01/18 16:46 Hgb 10.0 g/dL (13.0-17.0) L 09/01/18 16:46 Hct 30.5 % (38.0-50.0) L 09/01/18 16:46 MCV 84.7 fL (80.0-98.0) 09/01/18 16:46 MCH 27.8 pg (27.0-32.0) 09/01/18 16:46 MCHC 32.8 g/dL (31.0-37.0) 09/01/18 16:46 RDW Std Deviation 47.1 fl (28.0-62.0) 09/01/18 16:46 RDW Coeff of [place] 15 % (11.0-15.0) 09/01/18 16:46 Plt Count 202 K/uL (150-400) 09/01/18 16:46 MPV 9.50 fL (7.40-12.00) 09/01/18 16:46 Add Manual Diff YES 09/01/18 16:46 Neutrophils % (Manual) 45 % (48.0-80.0) L 09/01/18 16:46 Band Neutrophils % 7 % 09/01/18 16:46 Lymphocytes % (Manual) 26 % (16.0-40.0) 09/01/18 16:46 Monocytes % (Manual) 22 % (0.0-15.0) H 09/01/18 16:46 Eosinophils % (Manual) 1 % (0.0-7.0) 09/01/18 08:25 Nucleated RBC % 0.0 /100WBC 09/01/18 16:46 Absolute Seg Neuts 4.9 (1.4-5.7) 09/01/18 16:46 Band Neutrophils # 0.8 09/01/18 16:46 Lymphocytes # (Manual) 2.8 (0.6-2.4) H 09/01/18 16:46 Monocytes # (Manual) 2.4 (0.0-0.8) H 09/01/18 16:46 Eosinophils # (Manual) 0.1 (0.0-0.7) 09/01/18 08:25 Nucleated RBCs # 0 K/uL 09/01/18 16:46 INR 1.04 08/31/18 19:03 Sodium 144 mmol/L (136-148) 09/01/18 08:25 Potassium 3.7 mmol/L (3.5-5.1) 09/01/18 08:25 Chloride 109 mmol/L (98-107) H 09/01/18 08:25 Carbon Dioxide 24.7 mmol/L (21.0-32.0) 09/01/18 08:25 BUN 35 mg/dL (7.0-18.0) H 09/01/18 08:25 Creatinine 1.4 mg/dL (0.8-1.3) H 09/01/18 08:25 Est Cr Clr Drug Dosing 51.90 mL/min 09/01/18 08:25 Estimated GFR (MDRD) 50.7 ml/min 09/01/18 08:25 Glucose 112 mg/dL (74-106) H 09/01/18 08:25 POC Glucose 143 mg/dL (60-110) H 09/01/18 17:11 Calcium 8.9 mg/dL (8.5-10.1) 09/01/18 08:25 Total Bilirubin 0.3 mg/dL (0.2-1.0) 08/31/18 19:03 AST 8 IU/L (15-37) L 08/31/18 19:03 ALT 17 IU/L (14-63) 08/31/18 19:03 Alkaline Phosphatase 56 U/L (46-116) 08/31/18 19:03 Troponin I < 0.050 ng/mL (0.000-0.056) 08/31/18 19:03 Total Protein 7.1 g/dL (6.4-8.2) 08/31/18 19:03 Albumin 3.0 g/dL (3.4-5.0) L 08/31/18 19:03 Globulin 4.1 g/dL (2.6-4.0) H 08/31/18 19:03 Albumin/Globulin Ratio 0.7 (0.9-1.6) L 08/31/18 19:03 Amylase 40 U/L (25-115) 08/31/18 19:03 Lipase 149 U/L (73-393) 08/31/18 19:03 Blood Type A POSITIVE 08/31/18:42 Antibody Screen NEGATIVE 08/31/18:42 Crossmatch See Detail 08/31/18:42 - Imaging/EKG Impressions: ekg on 07/12/18 unchanged from 11/04: NSR with old septal NE. Echo done 12/05 was of pooor quality. Stress test done 12/05 shows EF: 29%, larger anterior old NE - Allergies Allergies/Adverse Reactions: Allergies Allergy/AdvReac Type Severity Reaction Status Date / Time No Known Allergies Allergy Verified 08/31/18 23:20 - Blood Blood Available: Yes Product(s) Available: PRBC (has had 2 units prbc yesterday) - Acknowledgements Anesthesia Type Planned: MAC Pt an Appropriate Candidate for the Planned Anesthesia: Yes Alternatives and Risks of Anesthesia Discussed w Pt/Guardian: Yes Pt/Guardian Understands and Agrees with Anesthesia Plan: Yes Additional Comments: hemoglobin this morning down to 9 from 10.1. FBS=97 at 0600. Patient says last plavix dose was 2 days ago. Consent signed and witness. Plan: Mac with GA backup if necessary. PreAnesthesia Questionnaire HEENT History: Reports: Hard of Hearing Cardiovascular History: Reports: Hypertension, NE, Stents Other Cardiovascular History: Exertional chest pain Respiratory History: Reports: COPD, Sleep Apnea Gastrointestinal History: Reports: None Genitourinary History: Reports: BPH Other Genitourinary History: Chronic Kidney disease Musculoskeletal History: Reports: Arthritis, Back Pain, Chronic Psychiatric History: Reports: PTSD Endocrine/Metabolic History: Reports: Diabetes, Type II, Hypothyroidism - Infectious Disease History Infectious Disease History: Reports: Chicken Pox, Measles, Mumps - Past Surgical History GI Surgical History: Reports: Colonoscopy Neurological Surgical History: Reports: Spinal Fusion Musculoskeletal Surgical History: Reports: Arthroscopic Knee, Other (See Below) Other Musculoskeletal Surgeries/Procedures:: back surgery - SUBSTANCE USE Smoking Status *Q: Current Every Day Smoker Tobacco Use Within Last Twelve Months: Cigarettes Recreational Drug Use History: Yes - HOME MEDS Home Medications: Home Meds Acetaminophen/Diphenhydramine [Acetaminophen Pm Caplet] 3 each PO BEDTIME [History] Aspirin [Adult Low Dose Aspirin EC] 81 mg PO DAILY 09/01/18 [History] Carvedilol 12.5 mg PO BIDMEALS 09/01/18 [History] Clopidogrel Bisulfate [Clopidogrel] 75 mg PO DAILY 09/01/18 [History] Ergocalciferol (Vitamin D2) [Vitamin D2] 2,000 unit PO DAILY 09/01/18 [History] Finasteride 5 mg PO DAILY 09/01/18 [History] Fluticasone Propionate [Flonase] 1 spray NASBOTH DAILY PRN 09/01/18 [History] Furosemide 80 mg PO DAILY 09/01/18 [History] Levothyroxine Sodium [Levo-T] 112 mcg PO DAILY 09/01/18 [History] Loratadine 10 mg PO DAILY 09/01/18 [History] Morphine Sulfate 15 mg PO TID 09/01/18 [History] Nitroglycerin [Nitrostat] 0.4 mg SL ASDIRECTED PRN 09/01/18 [History] Omeprazole 20 mg PO DAILY 09/01/18 [History] Spironolactone [Aldactone] 12.5 mg PO DAILY 09/01/18 [History] Sucralfate 1 gm PO BID 09/01/18 [History] Tamsulosin HCl 0.4 mg PO BEDTIME 09/01/18 [History] Zolpidem Tartrate 10 mg PO BEDTIME 09/01/18 [History] atorvaSTATin Calcium [Atorvastatin Calcium] 40 mg PO BEDTIME 09/01/18 [History] metFORMIN HCl [Metformin HCl] 500 mg PO BIDMEALS 09/01/18 [History] - CURRENT (IN HOUSE) MEDS Current Meds: Current Medications Atorvastatin Calcium (Lipitor) 40 mg PO BEDTIME [facility] Last Admin: 09/01/18 21:43 Dose: 40 mg Clopidogrel Bisulfate (Plavix) 75 mg PO DAILY [facility] Last Admin: 09/01/18 09:28 Dose: 75 mg Pantoprazole Sodium 80 mg/ (Sodium Chloride) 100 mls @ 10 mls/hr IV Q10H [facility] Last Admin: 09/02/18 03:09 Dose: 10 mls/hr Insulin Aspart (Novolog) 0 unit SUBCUT TIDAC [facility]; Protocol Last Admin: 09/01/18 17:34 Dose: Not Given Levothyroxine Sodium (Levothyroxine) 112 mcg PO DAILY [facility] Last Admin: 09/01/18 09:27 Dose: 112 mcg Metformin HCl (Glucophage) 250 mg PO BIDMEALS [facility] Last Admin: 09/01/18 17:33 Dose: 250 mg Morphine Sulfate (Morphine) 15 mg PO TID [facility] Last Admin: 09/01/18 21:44 Dose: 15 mg Nicotine (Habitrol) 21 mg TRDERM DAILY [facility] Last Admin: 09/01/18 09:28 Dose: 21 mg Ondansetron HCl (Zofran) 4 mg IVPUSH Q4H PRN PRN Reason: Nausea Sodium Chloride (Saline Flush) 10 ml FLUSH ASDIRECTED PRN PRN Reason: Keep Vein Open Last Admin: 08/31/18 19:26 Dose: 10 ml Sodium Chloride (Saline Flush) 2.5 ml FLUSH ASDIRECTED PRN PRN Reason: Keep Vein Open Last Admin: 08/31/18 19:26 Dose: 2.5 ml Zaleplon (Sonata) 5 mg PO BEDTIME [facility] Last Admin: 09/01/18 21:43 Dose: 5 mg Discontinued Medications Sodium Chloride (Normal Saline) 1,000 mls @ 999 mls/hr IV STAT ONE Stop: 08/31/18 20:13 Last Admin: 08/31/18 19:26 Dose: 999 mls/hr Pantoprazole Sodium 80 mg/ (Sodium Chloride) 100 mls @ 10 mls/hr IV .Continuous [facility] Last Admin: 09/01/18 07:05 Dose: 10 mls/hr Sodium Chloride (Normal Saline) 1,000 mls @ 125 mls/hr IV ASDIRECTED [facility] Last Admin: 08/31/18 22:38 Dose: 125 mls/hr Metformin HCl (Glucophage) 500 mg PO BIDMEALS [facility] Last Admin: 09/01/18 18:08 Dose: Not Given Metformin HCl (Glucophage Xr) 250 mg PO BIDMEALS [facility] Metformin HCl (Glucophage Xr) 250 mg PO BIDMEALS [facility] Pantoprazole Sodium (Protonix Iv) 80 mg IVPUSH .[facility]OLUS ONE Stop: 08/31/18 19:14 Last Admin: 08/31/18 19:26 Dose: 80 mg Pantoprazole Sodium (Protonix Iv) Confirm Administered Dose 80 mg .ROUTE .STK -MED ONE Stop: 08/31/18 19:36 Last Admin: 08/31/18 20:00 Dose: Not Given
[2018-09-02] MEDS ORDERED: Lidocaine 4% Top Soln 50 ML Bottle ONE (07:04)
[2018-09-02] MEDS ORDERED: Lidocaine 2% 5 ML SDV ONE (07:09)
[2018-09-02] MEDS ORDERED: fentaNYL 100 MCG/2 ML SDV ONE (07:09)
[2018-09-02] MEDS ORDERED: Midazolam 1 MG/ML 2 ML SDV ONE (07:09)
[2018-09-02] MEDS ORDERED: ePHEDrine 50 MG/ML SDV ONE (07:09)
[2018-09-02] MEDS ORDERED: Etomidate 2 MG/ML 20 ML SDV IVPUSH ONE (07:09)
[2018-09-02] MEDS ORDERED: Sodium Chloride 0.9% 20 ML ONE (07:09)
[2018-09-02] MEDS: Insulin Aspart 100 Units/ML 3 ML Pen SUBCUT SCH ×3 (07:20→16:32)
[2018-09-02] MEDS: Morphine 15 MG Tab PO SCH ×3 (07:21→14:17)
[2018-09-02] MEDS ORDERED: metFORMIN 500 MG Tab.ER PO SCH (08:00)
--- NOTE | 2018-09-02 08:12 | PCM.POSTAN ---
POST ANESTHESIA ASSESSMENT - MENTAL STATUS Mental Status: Alert, Oriented - VITAL SIGNS Pulse Rate: 88 SaO2: 100 Resp Rate: 18 Blood Pressure: 116/69 - RESPIRATORY Respiratory Status: Respiratory Rate WNL, Airway Patent, O2 Saturation Stable - CARDIOVASCULAR CV Status: Pulse Rate WNL, Blood Pressure Stable - GASTROINTESTINAL GI Status: No Symptoms - PAIN Pain Score: 0 (no pain, no nausea) - POST OP HYDRATION Hydration Status: Adequate & Stable (awake and alert. lCannot believe procedure is over. Had versed and etomidate for procedure. Vitals stable throughout. Good post op phase I recovery. No EKG changes.)
--- NOTE | 2018-09-02 08:14 | PCM.OPNOTE ---
- General Post-Op/Procedure Note Date of Surgery/Procedure: 09/02/18 Operative Procedure(s): Esophagogastroduodenoscopy with antral biopsies Pre Op Diagnosis: Upper GI bleed with anemia. Melanotic stools. Post-Op Diagnosis: Mild to moderate chronic gastritis. No acute ulcerations. Anesthesia Technique: MAC (ASA III) Primary Surgeon: Neptali Pittman Condition: Good Free Text/Narrative:: Intake & Output 09/01/18 09/02/18 09/02/18 19:59 03:59 11:59 Intake Total 1528 517 Output Total 300 500 Balance 1228 17 DICTATION 313462 CPT CODE 13938
[2018-09-02] MEDS ORDERED: Lactated Ringers 1,000 ML IV SCH (08:15)
--- NOTE | 2018-09-02 10:28 | PCM48HPAN ---
Post Anesthesia Note - EVALUATION WITHIN 48HRS OF ANESTHETIC Vital Signs in Normal Range: Yes Patient Participated in Evaluation: Yes Respiratory Function Stable: Yes Airway Patent: Yes Cardiovascular Function Stable: Yes Hydration Status Stable: Yes Pain Control Satisfactory: Yes Nausea and Vomiting Control Satisfactory: Yes Pulse Rate: 88 SaO2: 97 Resp Rate: 16 Temperature: 36.1 C Blood Pressure: 117/56 - COMMENTS/OBSERVATIONS Free Text/Narrative:: awake, alert, vitals stable. No pain, no nausea. Good spirits. No complaints.
--- NOTE | 2018-09-02 10:43 | PCM.PN ---
- General Info Date of Service: 09/02/18 Admission Dx/Problem (Free Text): Admission Diagnosis/Problem Admission Diagnosis/Problem Gastrointestinal hemorrhage Subjective Update: Feeling good this morning, returned from PACU from having EGD. Eager to go home. No chest pain or SOB. No pain. eating breakfast. Functional Status: Reports: Pain Controlled, Tolerating Diet, Ambulating, Urinating - Review of Systems General: Reports: No Symptoms. Denies: Weakness, Fatigue, Malaise Pulmonary: Reports: No Symptoms. Denies: Shortness of Breath, Cough, Sputum Cardiovascular: Reports: No Symptoms. Denies: Chest Pain, Edema Gastrointestinal: Reports: No Symptoms. Denies: Abdominal Pain, Nausea, Vomiting Genitourinary: Reports: No Symptoms. Denies: Dysuria, Frequency, Burning Musculoskeletal: Reports: Back Pain (chronic) Neurological: Reports: No Symptoms Psychiatric: Reports: No Symptoms - Patient Data Vitals - Most Recent: Last Vital Signs Temp 97 F 09/02/18 10:28 Pulse 88 09/02/18 10:28 Resp 16 09/02/18 10:28 BP 117/56 L 09/02/18 10:28 Pulse Ox 97 09/02/18 10:28 Weight - Most Recent: 86.183 kg I&O - Last 24 Hours: Intake & Output 09/01/18 09/02/18 09/02/18 22:59 06:59 14:59 Intake Total 1528 517 150 Output Total 300 500 Balance 1228 17 150 Lab Results Last 24 Hours: Laboratory Results - last 24 hr 09/01/18 09/01/18 09/01/18 Range/Units 08:25 11:22 16:46 WBC 10.80 (4.0-11.0) K/uL RBC 3.60 L (4.50-5.90) M/uL Hgb 10.0 L (13.0-17.0) g/dL Hct 30.5 L (38.0-50.0) % MCV 84.7 (80.0-98.0) fL MCH 27.8 (27.0-32.0) pg MCHC 32.8 (31.0-37.0) g/dL RDW Std Deviation 47.1 (28.0-62.0) fl RDW Coeff of [place] 15 (11.0-15.0) % Plt Count 202 (150-400) K/uL MPV 9.50 (7.40-12.00) fL Add Manual Diff YES Neutrophils % (Manual) 47 L 45 L (48.0-80.0) % Band Neutrophils % 2 7 % Lymphocytes % (Manual) 30 26 (16.0-40.0) % Monocytes % (Manual) 20 H 22 H (0.0-15.0) % Eosinophils % (Manual) 1 (0.0-7.0) % Basophils % (Manual) (0.0-1.5) % Nucleated RBC % 0.0 /100WBC Absolute Seg Neuts 4.1 4.9 (1.4-5.7) Band Neutrophils # 0.2 0.8 Lymphocytes # (Manual) 2.6 H 2.8 H (0.6-2.4) Monocytes # (Manual) 1.8 H 2.4 H (0.0-0.8) Eosinophils # (Manual) 0.1 (0.0-0.7) Basophils # (Manual) (0.0-0.1) Nucleated RBCs # 0 K/uL POC Glucose 124 H (60-110) mg/dL 09/01/18 09/02/18 Range/Units 17:11 06:04 WBC 6.61 (4.0-11.0) K/uL RBC 3.28 L (4.50-5.90) M/uL Hgb 9.0 L (13.0-17.0) g/dL Hct 27.9 L (38.0-50.0) % MCV 85.1 (80.0-98.0) fL MCH 27.4 (27.0-32.0) pg MCHC 32.3 (31.0-37.0) g/dL RDW Std Deviation 47.4 (28.0-62.0) fl RDW Coeff of [place] 15 (11.0-15.0) % Plt Count 169 (150-400) K/uL MPV 9.50 (7.40-12.00) fL Add Manual Diff YES Neutrophils % (Manual) 40 L (48.0-80.0) % Band Neutrophils % 7 % Lymphocytes % (Manual) 36 (16.0-40.0) % Monocytes % (Manual) 15 (0.0-15.0) % Eosinophils % (Manual) 1 (0.0-7.0) % Basophils % (Manual) 1 (0.0-1.5) % Nucleated RBC % 0.0 /100WBC Absolute Seg Neuts 2.6 (1.4-5.7) Band Neutrophils # 0.5 Lymphocytes # (Manual) 2.4 (0.6-2.4) Monocytes # (Manual) 1.0 H (0.0-0.8) Eosinophils # (Manual) 0.1 (0.0-0.7) Basophils # (Manual) 0.1 (0.0-0.1) Nucleated RBCs # 0 K/uL POC Glucose 143 H (60-110) mg/dL Med Orders - Current: Current Medications Atorvastatin Calcium (Lipitor) 40 mg PO BEDTIME [facility] Last Admin: 09/01/18 21:43 Dose: 40 mg Pantoprazole Sodium 80 mg/ (Sodium Chloride) 100 mls @ 10 mls/hr IV Q10H [facility] Last Admin: 09/02/18 03:09 Dose: 10 mls/hr Insulin Aspart (Novolog) 0 unit SUBCUT TIDAC [facility]; Protocol Last Admin: 09/02/18 07:20 Dose: Not Given Levothyroxine Sodium (Levothyroxine) 112 mcg PO DAILY [facility] Last Admin: 09/01/18 09:27 Dose: 112 mcg Metformin HCl (Glucophage) 250 mg PO BIDMEALS [facility] Last Admin: 09/01/18 17:33 Dose: 250 mg Morphine Sulfate (Morphine) 15 mg PO TID [facility] Last Admin: 09/02/18 07:21 Dose: Not Given Nicotine (Habitrol) 21 mg TRDERM DAILY [facility] Last Admin: 09/01/18 09:28 Dose: 21 mg Ondansetron HCl (Zofran) 4 mg IVPUSH Q4H PRN PRN Reason: Nausea Sodium Chloride (Saline Flush) 10 ml FLUSH ASDIRECTED PRN PRN Reason: Keep Vein Open Last Admin: 08/31/18 19:26 Dose: 10 ml Sodium Chloride (Saline Flush) 2.5 ml FLUSH ASDIRECTED PRN PRN Reason: Keep Vein Open Last Admin: 08/31/18 19:26 Dose: 2.5 ml Zaleplon (Sonata) 5 mg PO BEDTIME [facility] Last Admin: 09/01/18 21:43 Dose: 5 mg Discontinued Medications Clopidogrel Bisulfate (Plavix) 75 mg PO DAILY [facility] Last Admin: 09/01/18 09:28 Dose: 75 mg Ephedrine Sulfate (Ephedrine Sulfate) Confirm Administered Dose 50 mg .ROUTE .[facility] ONE Stop: 09/02/18 07:10 Etomidate (Amidate) Confirm Administered Dose 40 mg IVPUSH .[facility] ONE Stop: 09/02/18 07:10 Fentanyl (Sublimaze) Confirm Administered Dose 100 mcg .ROUTE .[facility] ONE Stop: 09/02/18 07:10 Sodium Chloride (Normal Saline) 1,000 mls @ 999 mls/hr IV STAT ONE Stop: 08/31/18 20:13 Last Admin: 08/31/18 19:26 Dose: 999 mls/hr Pantoprazole Sodium 80 mg/ (Sodium Chloride) 100 mls @ 10 mls/hr IV .Continuous [facility] Last Admin: 09/01/18 07:05 Dose: 10 mls/hr Sodium Chloride (Normal Saline) 1,000 mls @ 125 mls/hr IV ASDIRECTED [facility] Last Admin: 08/31/18 22:38 Dose: 125 mls/hr Sodium Chloride (Normal Saline) Confirm Administered Dose 20 mls @ as directed .ROUTE .[facility] ONE Stop: 09/02/18 07:10 Lactated Ringer's (Ringers, Lactated) 1,000 mls @ 125 mls/hr IV ASDIRECTED [facility] Lidocaine (Xylocaine-Mpf 2%) Confirm Administered Dose 5 ml .ROUTE .[facility] ONE Stop: 09/02/18 07:10 Lidocaine HCl (Xylocaine 4% Top Soln) Confirm Administered Dose 50 ml .ROUTE .[facility] ONE Stop: 09/02/18 07:05 Metformin HCl (Glucophage) 500 mg PO BIDMEALS [facility] Last Admin: 09/01/18 18:08 Dose: Not Given Metformin HCl (Glucophage Xr) 250 mg PO BIDMEALS [facility] Metformin HCl (Glucophage Xr) 250 mg PO BIDMEALS [facility] Last Admin: 09/02/18 07:36 Dose: Not Given Midazolam HCl (Versed 1 Mg/Ml) Confirm Administered Dose 2 mg .ROUTE .[facility] ONE Stop: 09/02/18 07:10 Pantoprazole Sodium (Protonix Iv) 80 mg IVPUSH .[facility] ONE Stop: 08/31/18 19:14 Last Admin: 08/31/18 19:26 Dose: 80 mg Pantoprazole Sodium (Protonix Iv) Confirm Administered Dose 80 mg .ROUTE .STK -MED ONE Stop: 08/31/18 19:36 Last Admin: 08/31/18 20:00 Dose: Not Given - Exam General: Alert, Oriented, Cooperative, No Acute Distress Lungs: Clear to Auscultation, Normal Respiratory Effort Cardiovascular: Regular Rate, Regular Rhythm GI/Abdominal Exam: Normal Bowel Sounds, Soft, Non-Tender Extremities: Normal Inspection, Normal Range of Motion, Non-Tender, No Pedal Edema Neurological: No New Focal Deficit Psy/Mental Status: Alert, Normal Affect, Normal Mood - Problem List & Annotations (1) Upper GI bleed SNOMED Code(s): 74762554 Code(s): K92.2 - GASTROINTESTINAL HEMORRHAGE, UNSPECIFIED Status: Acute Priority: High Current Visit: Yes (2) Anemia associated with acute blood loss SNOMED Code(s): 067274075 Code(s): D62 - ACUTE POSTHEMORRHAGIC ANEMIA Status: Acute Priority: High Current Visit: Yes (3) HTN (hypertension) SNOMED Code(s): 13250397 Code(s): I10 - ESSENTIAL (PRIMARY) HYPERTENSION Status: Chronic Current Visit: Yes Qualifiers: Hypertension type: essential hypertension Qualified Code(s): I10 - Essential (primary) hypertension (4) Type 2 diabetes mellitus SNOMED Code(s): 59203000 Code(s): E11.9 - TYPE 2 DIABETES MELLITUS WITHOUT COMPLICATIONS Status: Chronic Current Visit: Yes Qualifiers: Diabetes mellitus fpc insulin use: without fpc use (5) Hyperlipidemia SNOMED Code(s): 88425580 Code(s): E78.5 - HYPERLIPIDEMIA, UNSPECIFIED Status: Chronic Current Visit: Yes (6) Ischemic dilated cardiomyopathy SNOMED Code(s): 829242220 Code(s): I25.5 - ISCHEMIC CARDIOMYOPATHY; I42.0 - DILATED CARDIOMYOPATHY Status: Chronic Current Visit: Yes (7) History of coronary artery stent placement SNOMED Code(s): 392101778, 592843114 Code(s): Z95.5 - PRESENCE OF CORONARY ANGIOPLASTY IMPLANT AND GRAFT Status : Chronic Priority: Medium Current Visit: Yes - Problem List Review Problem List Initiated/Reviewed/Updated: Yes - My Orders Last 24 Hours: My Active Orders 09/02/18 12:00 BMP [BASIC METABOLIC PANEL,BMP] [CHEM] Timed HEMOGLOBIN/HEMATOCRIT,HH [HEME] Timed - Plan Plan:: 67 yo male with pmh of CAD admitted for GI bleed. 1. Upper GI bleed: EGD this am with Dr Pittman, reveals gastritis, biopsies obtained. Continue Protonix drip, and trend Hgb. Hgb dipped to 9.0 this am, will repeat at noon. May need transfusion again. Consulted Dr Costa regarding Plavix and ASA need. 2. CAD: Holding Plavix and ASA for now, consut with Dr Costa. Continue Coreg. 3. Ischemic Dilated Cardiomyopathy: Holding Lasix and Spironalactone due to BPs , monitoring. 3. DM Type 2: Stable Continue Metformin, Novolog SSI. Monitor BS with meals. 4. HTN: Monitoring, due to GI bleed holding antihypertensives for now. 5. Chronic back pain: Continue Morphine ER VTE prophylaxis: SCDs only due to bleeding Dispo: Pending Hgb and consultation with Dr Costa
[2018-09-02] MEDS: metFORMIN 500 MG Tab PO SCH ×2 (10:52→16:57)
[2018-09-02] MEDS: Nicotine 21 MG/24 Hr Patch TRDERM SCH (10:53)
[2018-09-02] MEDS: Levothyroxine 112 MCG Tab PO SCH (10:57)
[2018-09-02] MEDS: Clopidogrel 75 MG Tab PO SCH (11:39)
[2018-09-02 12:37] LABS: CHLORIDE,CL 109 mmol/L (98-107); SODIUM,NA 142 mmol/L (136-148)
--- NOTE | 2018-09-02 14:12 | OR ---
SURGEON: Neptali Pittman M.D. DATE OF PROCEDURE: 09/02/2018 OPERATION PERFORMED: Esophagogastroduodenoscopy with biopsy. ANESTHESIA: MAC. ASA CLASSIFICATION: III PREOPERATIVE DIAGNOSIS: Upper gastrointestinal bleed with anemia. POSTOPERATIVE DIAGNOSIS: [id number] gastritis without ulceration. DESCRIPTION OF PROCEDURE: The patient was taken to the endoscopy room and positioned on the endoscopy table in the supine position. Time-out was called for appropriate identification of the patient and procedure. Monitored anesthesia care was provided. The bite block was placed between the patient's teeth. The gastroscope was inserted through the bite block into the oropharynx and advanced without difficulty through the esophagus and stomach into the duodenum. There was no blood seen in the upper tract. No ulcerations or inflammatory changes were noted in the duodenum. The scope was withdrawn to the stomach, which does show [id number] gastritis. Again, no acute ulcerations were noted and there was no bleeding coming from anywhere in the stomach. Antral biopsies were obtained to look for the presence of Helicobacter pylori. The gastroscope was retroflexed to visualize the proximal stomach. No mid or proximal lesions were identified. The patient does have a small hiatal hernia. No acute inflammatory changes were noted in the esophagus. The esophagus demonstrated good contractility. No mid or proximal lesions were identified. The vocal cords were visualized as the scope was withdrawn and noted to move symmetrically. The gastroscope was then removed with the patient having tolerated the procedure well. He was taken to recovery room in stable condition. HENNA / MIRIAM /[id number]
--- NOTE | 2018-09-02 16:56 | PCM.DCSUM1 ---
Discharge Summary - Hospital Course Brief History: 67 yo male with pmh of CHF, CAD with last stent place in April who presented with two syncopal events. He passed out while passing dark tarry stool. Patient denies any shortness of breath, chest pain, or abdominal pain. He denies any nausea or vomiting. He denies any abnormal bruising. He takes plavix and aspirin. Diagnosis: Stroke: No - Discharge Data Discharge Date: 09/02/18 Discharge Disposition: Home, Self-Care 01 Condition: Good - Discharge Diagnosis/Problem(s) (1) Upper GI bleed SNOMED Code(s): 64497818 ICD Code: K92.2 - GASTROINTESTINAL HEMORRHAGE, UNSPECIFIED Status: Acute Priority: High (2) Anemia associated with acute blood loss SNOMED Code(s): 196640500 ICD Code: D62 - ACUTE POSTHEMORRHAGIC ANEMIA Status: Acute Priority: High (3) HTN (hypertension) SNOMED Code(s): 80903929 ICD Code: I10 - ESSENTIAL (PRIMARY) HYPERTENSION Status: Chronic Qualifiers: Hypertension type: essential hypertension Qualified Code(s): I10 - Essential (primary) hypertension (4) Type 2 diabetes mellitus SNOMED Code(s): 05542966 ICD Code: E11.9 - TYPE 2 DIABETES MELLITUS WITHOUT COMPLICATIONS Status: Chronic Qualifiers: Diabetes mellitus terminal operations supervisor insulin use: without terminal operations supervisor use (5) Hyperlipidemia SNOMED Code(s): 39637788 ICD Code: E78.5 - HYPERLIPIDEMIA, UNSPECIFIED Status: Chronic (6) Ischemic dilated cardiomyopathy SNOMED Code(s): 878593693 ICD Code: I25.5 - ISCHEMIC CARDIOMYOPATHY; I42.0 - DILATED CARDIOMYOPATHY Status: Chronic (7) History of coronary artery stent placement SNOMED Code(s): 805905541, 643626242 ICD Code: Z95.5 - PRESENCE OF CORONARY ANGIOPLASTY IMPLANT AND GRAFT Status : Chronic Priority: Medium - Patient Summary/Data Operative Procedure(s) Performed: Esophagogastroduodenoscopy with antral biopsies Consults: Consultations 08/31/18 20:37 Consult to Physician [CONS] Stat 09/02/18 10:43 Consult to Physician [CONS] Routine - Patient Instructions Diet: Heart Healthy Diet, Diabetic Diet Activity: As Tolerated, No Strenuous Activities Showering/Bathing: May Shower Notify Provider of: Fever, Increased Pain, Swelling and Redness, Drainage, Nausea and/or Vomiting - Discharge Plan *PRESCRIPTION DRUG MONITORING PROGRAM REVIEWED*: Not Applicable *COPY OF PRESCRIPTION DRUG MONITORING REPORT IN PATIENT TATO: Not Applicable Prescriptions/Med Rec: Pantoprazole Sodium [Protonix] 40 mg PO BIDAC #60 tablet. Sucralfate 1 gm PO QIDACANDBED #120 tablet Home Medications: Home Meds Acetaminophen/Diphenhydramine [Acetaminophen Pm Caplet] 3 each PO BEDTIME [History] Aspirin [Adult Low Dose Aspirin EC] 81 mg PO DAILY 09/01/18 [History] Carvedilol 25 mg PO BIDMEALS 09/01/18 [History] Ergocalciferol (Vitamin D2) [Vitamin D2] 2,000 unit PO DAILY 09/01/18 [History] Finasteride 5 mg PO DAILY 09/01/18 [History] Fluticasone Propionate [Flonase] 1 spray NASBOTH DAILY PRN 09/01/18 [History] Furosemide 80 mg PO DAILY 09/01/18 [History] Levothyroxine Sodium [Levo-T] 112 mcg PO DAILY 09/01/18 [History] Loratadine 10 mg PO DAILY 09/01/18 [History] Morphine Sulfate 15 mg PO TID 09/01/18 [History] Nitroglycerin [Nitrostat] 0.4 mg SL ASDIRECTED PRN 09/01/18 [History] Tamsulosin HCl 0.4 mg PO BEDTIME 09/01/18 [History] Zolpidem Tartrate 10 mg PO BEDTIME 09/01/18 [History] atorvaSTATin Calcium [Atorvastatin Calcium] 40 mg PO BEDTIME 09/01/18 [History] metFORMIN HCl [Metformin HCl] 500 mg PO BIDMEALS 09/01/18 [History] Isosorbide Mononitrate [Isosorbide Mononitrate ER] 15 mg PO DAILY 09/02/18 [ History] Pantoprazole Sodium [Protonix] 40 mg PO BIDAC #60 tablet. 09/02/18 [Rx] Sucralfate 1 gm PO QIDACANDBED #120 tablet 09/02/18 [Rx] Patient Handouts: Esophagogastroduodenoscopy, Upper Gastrointestinal Bleeding, Sucralfate tablets, Pantoprazole tablets Referrals: Neptali Pittman MD [Physician] - 09/17/18 11:[address] MD [Ordering Only Provider] - 09/10/18 3:00 pm - Discharge Summary/Plan Comment DC Time >30 min.: No Discharge Summary/Plan Comment: Discharge Diagnoses: Upper GI Bleed Ischemic Dilated cardiomyopathy HTN Type 2 DM Hyperlipidemia Hx coronary artery stenting Lucio was admitted after a syncopal episode at home with noted dark tarry stools. He was admitted placed on Protonix gtt, Dr Pittman, general surgery consulted for EGD. Hgb was monitored and did dipped to 8.2. He was transfused 2 units PRBCs. Hg reached 10.0. EGD revealed gastritis, no active bleeding. Please see Dr Pittman's Operative reports. He recommended Protonix and Carafate. Lucio Bonner's lead pony rider was consulted regarding need for continuation of Plavix and or ASA. He felt low dose ASA would be best for Lucio. He will also follow Lucio as outpatient as well. Hgb remained stable at 9.5 prior to discharge no further syncopal episodes. He will be discharged home with Protonix 540 mg BID and Carafate with meals and at bedtime for at least one month, then to resume previous dosing. He is to follow up with cardiology as previously planned and PCP in 1 week. He will also be scheduled for follow up with Dr Pittman, with the recommendation for colonoscopy. He is to return to ED or clinic if concerns should arise. This was all discussed with Lucio as well as with , April. - General Info Date of Service: 09/02/18 Admission Dx/Problem (Free Text: Admission Diagnosis/Problem Admission Diagnosis/Problem Gastrointestinal hemorrhage Subjective Update: Feels well this afternoon. Eating well. no further syncopal episodes and no dizziness. Very eager to be discharged home. Visited with Dr Duran Functional Status: Reports: Pain Controlled, Tolerating Diet, Ambulating, Urinating - Review of Systems General: Reports: No Symptoms. Denies: Fever, Weakness, Fatigue Pulmonary: Reports: No Symptoms. Denies: Shortness of Breath, Cough, Sputum Cardiovascular: Reports: No Symptoms. Denies: Chest Pain, Orthopnea, Edema Gastrointestinal: Reports: No Symptoms. Denies: Abdominal Pain, Nausea, Vomiting Genitourinary: Reports: No Symptoms. Denies: Dysuria, Frequency, Burning Musculoskeletal: Reports: Back Pain (chronic) Skin: Reports: No Symptoms Neurological: Reports: No Symptoms Psychiatric: Reports: No Symptoms - Patient Data Vitals - Most Recent: Last Vital Signs Temp 97.1 F 09/02/18 16:00 Pulse 84 09/02/18 16:00 Resp 15 09/02/18 16:00 BP 126/62 09/02/18 16:00 Pulse Ox 96 09/02/18 16:00 Weight - Most Recent: 86.183 kg I&O - Last 24 hours: Intake & Output 09/02/18 09/02/18 09/02/18 06:59 14:59 22:59 Intake Total 517 150 840 Output Total 500 720 Balance 17 150 120 Lab Results - Last 24 hrs: Laboratory Results - last 24 hr 09/01/18 09/01/18 09/02/18 Range/Units 16:46 17:11 06:04 WBC 10.80 6.61 (4.0-11.0) K/uL RBC 3.60 L 3.28 L (4.50-5.90) M/uL Hgb 10.0 L 9.0 L (13.0-17.0) g/dL Hct 30.5 L 27.9 L (38.0-50.0) % MCV 84.7 85.1 (80.0-98.0) fL MCH 27.8 27.4 (27.0-32.0) pg MCHC 32.8 32.3 (31.0-37.0) g/dL RDW Std Deviation 47.1 47.4 (28.0-62.0) fl RDW Coeff of [place] 15 15 (11.0-15.0) % Plt Count 202 169 (150-400) K/uL MPV 9.50 9.50 (7.40-12.00) fL Add Manual Diff YES YES Neutrophils % (Manual) 45 L 40 L (48.0-80.0) % Band Neutrophils % 7 7 % Lymphocytes % (Manual) 26 36 (16.0-40.0) % Monocytes % (Manual) 22 H 15 (0.0-15.0) % Eosinophils % (Manual) 1 (0.0-7.0) % Basophils % (Manual) 1 (0.0-1.5) % Nucleated RBC % 0.0 0.0 /100WBC Absolute Seg Neuts 4.9 2.6 (1.4-5.7) Band Neutrophils # 0.8 0.5 Lymphocytes # (Manual) 2.8 H 2.4 (0.6-2.4) Monocytes # (Manual) 2.4 H 1.0 H (0.0-0.8) Eosinophils # (Manual) 0.1 (0.0-0.7) Basophils # (Manual) 0.1 (0.0-0.1) Nucleated RBCs # 0 0 K/uL Sodium (136-148) mmol/L Potassium (3.5-5.1) mmol/L Chloride (98-107) mmol/L Carbon Dioxide (21.0-32.0) mmol/L BUN (7.0-18.0) mg/dL Creatinine (0.8-1.3) mg/dL Est Cr Clr Drug Dosing mL/min Estimated GFR (MDRD) ml/min Glucose (74-106) mg/dL POC Glucose 143 H (60-110) mg/dL Calcium (8.5-10.1) mg/dL 09/02/18 09/02/18 09/02/18 Range/Units 06:26 11:31 12:10 WBC (4.0-11.0) K/uL RBC (4.50-5.90) M/uL Hgb 9.5 L (13.0-17.0) g/dL Hct 29.8 L (38.0-50.0) % MCV (80.0-98.0) fL MCH (27.0-32.0) pg MCHC (31.0-37.0) g/dL RDW Std Deviation (28.0-62.0) fl RDW Coeff of [place] (11.0-15.0) % Plt Count (150-400) K/uL MPV (7.40-12.00) fL Add Manual Diff Neutrophils % (Manual) (48.0-80.0) % Band Neutrophils % % Lymphocytes % (Manual) (16.0-40.0) % Monocytes % (Manual) (0.0-15.0) % Eosinophils % (Manual) (0.0-7.0) % Basophils % (Manual) (0.0-1.5) % Nucleated RBC % /100WBC Absolute Seg Neuts (1.4-5.7) Band Neutrophils # Lymphocytes # (Manual) (0.6-2.4) Monocytes # (Manual) (0.0-0.8) Eosinophils # (Manual) (0.0-0.7) Basophils # (Manual) (0.0-0.1) Nucleated RBCs # K/uL Sodium (136-148) mmol/L Potassium (3.5-5.1) mmol/L Chloride (98-107) mmol/L Carbon Dioxide (21.0-32.0) mmol/L BUN (7.0-18.0) mg/dL Creatinine (0.8-1.3) mg/dL Est Cr Clr Drug Dosing mL/min Estimated GFR (MDRD) ml/min Glucose (74-106) mg/dL POC Glucose 97 185 H (60-110) mg/dL Calcium (8.5-10.1) mg/dL 09/02/18 09/02/18 Range/Units 12:10 16:17 WBC (4.0-11.0) K/uL RBC (4.50-5.90) M/uL Hgb (13.0-17.0) g/dL Hct (38.0-50.0) % MCV (80.0-98.0) fL MCH (27.0-32.0) pg MCHC (31.0-37.0) g/dL RDW Std Deviation (28.0-62.0) fl RDW Coeff of [place] (11.0-15.0) % Plt Count (150-400) K/uL MPV (7.40-12.00) fL Add Manual Diff Neutrophils % (Manual) (48.0-80.0) % Band Neutrophils % % Lymphocytes % (Manual) (16.0-40.0) % Monocytes % (Manual) (0.0-15.0) % Eosinophils % (Manual) (0.0-7.0) % Basophils % (Manual) (0.0-1.5) % Nucleated RBC % /100WBC Absolute Seg Neuts (1.4-5.7) Band Neutrophils # Lymphocytes # (Manual) (0.6-2.4) Monocytes # (Manual) (0.0-0.8) Eosinophils # (Manual) (0.0-0.7) Basophils # (Manual) (0.0-0.1) Nucleated RBCs # K/uL Sodium 142 (136-148) mmol/L Potassium 3.8 (3.5-5.1) mmol/L Chloride 109 H (98-107) mmol/L Carbon Dioxide 21.6 (21.0-32.0) mmol/L BUN 17 (7.0-18.0) mg/dL Creatinine 1.1 (0.8-1.3) mg/dL Est Cr Clr Drug Dosing 66.06 mL/min Estimated GFR (MDRD) > 60.0 ml/min Glucose 153 H (74-106) mg/dL POC Glucose 88 (60-110) mg/dL Calcium 8.6 (8.5-10.1) mg/dL Med Orders - Current: Current Medications Atorvastatin Calcium (Lipitor) 40 mg PO BEDTIME [facility] Last Admin: 09/01/18 21:43 Dose: 40 mg Carvedilol (Coreg) 12.5 mg PO BIDMEALS [facility] Pantoprazole Sodium 80 mg/ (Sodium Chloride) 100 mls @ 10 mls/hr IV Q10H [facility] Last Admin: 09/02/18 12:14 Dose: 10 mls/hr Insulin Aspart (Novolog) 0 unit SUBCUT TIDAC [facility]; Protocol Last Admin: 09/02/18 16:32 Dose: Not Given Levothyroxine Sodium (Levothyroxine) 112 mcg PO DAILY [facility] Last Admin: 09/02/18 10:57 Dose: 112 mcg Metformin HCl (Glucophage) 250 mg PO BIDMEALS [facility] Last Admin: 09/02/18 10:52 Dose: 250 mg Morphine Sulfate (Morphine) 15 mg PO TID [facility] Last Admin: 09/02/18 14:17 Dose: 15 mg Nicotine (Habitrol) 21 mg TRDERM DAILY [facility] Last Admin: 09/02/18 10:53 Dose: 21 mg Ondansetron HCl (Zofran) 4 mg IVPUSH Q4H PRN PRN Reason: Nausea Sodium Chloride (Saline Flush) 10 ml FLUSH ASDIRECTED PRN PRN Reason: Keep Vein Open Last Admin: 08/31/18 19:26 Dose: 10 ml Sodium Chloride (Saline Flush) 2.5 ml FLUSH ASDIRECTED PRN PRN Reason: Keep Vein Open Last Admin: 08/31/18 19:26 Dose: 2.5 ml Zaleplon (Sonata) 5 mg PO BEDTIME [facility] Last Admin: 09/01/18 21:43 Dose: 5 mg Discontinued Medications Clopidogrel Bisulfate (Plavix) 75 mg PO DAILY [facility] Last Admin: 09/02/18 11:39 Dose: Not Given Ephedrine Sulfate (Ephedrine Sulfate) Confirm Administered Dose 50 mg .ROUTE .K-MED ONE Stop: 09/02/18 07:10 Etomidate (Amidate) Confirm Administered Dose 40 mg IVPUSH .[facility]-MED ONE Stop: 09/02/18 07:10 Fentanyl (Sublimaze) Confirm Administered Dose 100 mcg .ROUTE .[facility]-MED ONE Stop: 09/02/18 07:10 Sodium Chloride (Normal Saline) 1,000 mls @ 999 mls/hr IV STAT ONE Stop: 08/31/18 20:13 Last Admin: 08/31/18 19:26 Dose: 999 mls/hr Pantoprazole Sodium 80 mg/ (Sodium Chloride) 100 mls @ 10 mls/hr IV .Continuous [facility] Last Admin: 09/01/18 07:05 Dose: 10 mls/hr Sodium Chloride (Normal Saline) 1,000 mls @ 125 mls/hr IV ASDIRECTED [facility] Last Admin: 08/31/18 22:38 Dose: 125 mls/hr Sodium Chloride (Normal Saline) Confirm Administered Dose 20 mls @ as directed .ROUTE .[facility]-MED ONE Stop: 09/02/18 07:10 Lactated Ringer's (Ringers, Lactated) 1,000 mls @ 125 mls/hr IV ASDIRECTED [facility] Lidocaine (Xylocaine-Mpf 2%) Confirm Administered Dose 5 ml .ROUTE .STK-MED ONE Stop: 09/02/18 07:10 Lidocaine HCl (Xylocaine 4% Top Soln) Confirm Administered Dose 50 ml .ROUTE .K-MED ONE Stop: 09/02/18 07:05 Metformin HCl (Glucophage) 500 mg PO BIDMEALS [facility] Last Admin: 09/01/18 18:08 Dose: Not Given Metformin HCl (Glucophage Xr) 250 mg PO BIDMEALS [facility] Metformin HCl (Glucophage Xr) 250 mg PO BIDMEALS [facility] Last Admin: 09/02/18 07:36 Dose: Not Given Midazolam HCl (Versed 1 Mg/Ml) Confirm Administered Dose 2 mg .ROUTE .STK-MED ONE Stop: 09/02/18 07:10 Pantoprazole Sodium (Protonix Iv) 80 mg IVPUSH .[facility] ONE Stop: 08/31/18 19:14 Last Admin: 08/31/18 19:26 Dose: 80 mg Pantoprazole Sodium (Protonix Iv) Confirm Administered Dose 80 mg .ROUTE .STK -MED ONE Stop: 08/31/18 19:36 Last Admin: 08/31/18 20:00 Dose: Not Given - Exam Quality Assessment: Denies: Supplemental Oxygen General: Reports: Alert, Oriented, Cooperative, No Acute Distress Lungs: Reports: Clear to Auscultation, Normal Respiratory Effort Cardiovascular: Reports: Regular Rate, Regular Rhythm GI/Abdominal Exam: Normal Bowel Sounds, Soft, Non-Tender, No Mass Extremities: Normal Inspection, Normal Range of Motion, Non-Tender, No Pedal Edema Neurological: Reports: No New Focal Deficit Psy/Mental Status: Reports: Alert, Normal Affect
[2018-09-02] MEDS ORDERED: Carvedilol 12.5 MG Tab PO SCH (17:00)
--- NOTE | 2018-09-02 19:07 | CT ---
EXAM DATE: 08/31/18 PATIENT'S AGE: 67 Patient: DAVIS BRIZUELA Facility: [facility], [place], [place] Site . Site : 1950 Study: CT Head -08/31/2018 8:41:07 PM Ordering Physician: Terri Kim Final Report: INDICATION: Syncopal episode with fall. COMPARISON: None available. TECHNIQUE: CT examination of the head was performed with 3 mm thick axial sections without intravenous contrast. Images were obtained from the vertex of the skull through the skull base, and I examined the images with the brain and bone windows. Please note that all CT scans at this facility use dose modulation, iterative reconstruction, and/or weight-based dosing when appropriate to reduce radiation dose to as low as reasonably achievable. FINDINGS: : The brain is normal in appearance for the patient`s age on today`s study, with no sign of mass lesion, mass effect, hemorrhage, or edema. There is moderate dilatation of the ventricles and mild dilatation of the sulci representing age-appropriate atrophy. The visualized portions of the orbits are normal in appearance. The visualized portions of the paranasal sinuses and mastoids are clear. The osseous structures are normal in their appearance with no sign of abnormality in the skull base or calvarium. IMPRESSION: NORMAL NONCONTRAST CT OF THE HEAD FOR THE PATIENT`S AGE. NO SIGN OF CLOSED HEAD INJURY. MODERATE, AGE-APPROPRIATE ATROPHY. Please note that all CT scans at this facility use dose modulation, iterative reconstruction, and/or weight-based dosing when appropriate to reduce radiation dose to as low as reasonably achievable. Dictated by Devin Whitney MD @ Aug 31 2018 9:10PM (Electronic Signature) Report Signed by Proxy. [facility]ENTER[facility]a
--- NOTE | 2018-09-02 19:08 | CR ---
EXAM DATE: 08/31/18 PATIENT'S AGE: 67 Patient: DAVIS BRIZUELA Facility: [place], [place] Site . Site : 1950 Study: XRay Chest -08/31/2018 8:42:58 PM Ordering Physician: Terri Kim Final Report: INDICATION: Status post syncopal episode with fall. COMPARISON: None available. FINDINGS: An AP semi-erect single view of the chest was obtained at 2027 hours. The lungs are clear. No focal or diffuse infiltrates are present. The heart is top-normal in size. The mediastinum is normal in appearance. The osseous structures are normal in appearance for the patient`s age. IMPRESSION: NORMAL CHEST SINGLE VIEW. Dictated by Devin Whitney MD @ Aug 31 2018 9:13PM (Electronic Signature) Report Signed by Proxy. [facility]
== END 2018-09-02 17:30 | disposition home or self-care (01) | DRG 378 ==
LOC: MW.ED 18:48 → MW.MS 20:54
PROVIDERS: ADMIT Internal Medicine; ATTEND Internal Medicine
PROC: 30233N1 Transfusion of Nonautologous Red Blood Cells into Peripheral Vein, Percutaneous Approach (ICD-10-PCS; 2018-09-01)
PROC: 0DD68ZX Extraction of Stomach, Via Natural or Artificial Opening Endoscopic, Diagnostic (ICD-10-PCS; principal; 2018-09-02)
DX: K29.71 Gastritis, unspecified, with bleeding (principal); D62 Acute posthemorrhagic anemia; I42.0 Dilated cardiomyopathy; I13.0 Hypertensive heart and chronic kidney disease with heart failure and stage 1 through stage 4 chronic kidney disease, or unspecified chronic kidney disease; E78.5 Hyperlipidemia, unspecified; I25.10 Atherosclerotic heart disease of native coronary artery without angina pectoris; N40.0 Benign prostatic hyperplasia without lower urinary tract symptoms; E03.9 Hypothyroidism, unspecified; I50.9 Heart failure, unspecified; J44.9 Chronic obstructive pulmonary disease, unspecified; G47.30 Sleep apnea, unspecified; I25.2 Old myocardial infarction; E11.22 Type 2 diabetes mellitus with diabetic chronic kidney disease; N18.9 Chronic kidney disease, unspecified; R55 Syncope and collapse; M54.9 Dorsalgia, unspecified; G89.29 Other chronic pain; M19.90 Unspecified osteoarthritis, unspecified site; F17.210 Nicotine dependence, cigarettes, uncomplicated; Z95.5 Presence of coronary angioplasty implant and graft; Z79.899 Other long term (current) drug therapy; Z79.82 Long term (current) use of aspirin
CPT/HCPCS: 36415; 36430; 70450; 70450-26; 71045; 71045-26; 80048; 80053; 82150; 82962; 83690; 84484; 85014; 85018; 85025; 85610; 86850; 86900; 86901; 86920; 86921; 86922; 93005; 96361; 96365; 96366; 96376; 99284; 99285-25; A9270-GY; C9113; J1815-GY; J2250; J3010; J3490; J7030; J7040; P9016